=== PATIENT | female | born 1990 | race Caucasian/White ===

== ENCOUNTER 2016-08-01 20:47 | Outpatient (CLI) | payer OTHER ==
[2016-08-01 21:32] LABS: APPEARANCE,URINE CLEAR; BILIRUBIN,URINE NEGATIVE (NEGATIVE); GLUCOSE, URINE NEGATIVE (NEGATIVE); KETONES,URINE NEGATIVE (NEGATIVE); LEUKOCYTE ESTERASE,URINE NEGATIVE (NEGATIVE); NITRITE,URINE NEGATIVE (NEGATIVE); PROTEIN,URINE NEGATIVE (NEGATIVE); URINE SPECIFIC GRAVITY 1.002; UROBILINOGEN,URINE NEGATIVE mg/dL (<2.0)
[2016-08-01 22:11] LABS: URINE BARBITURATES SCREEN NEGATIVE; URINE METHADONE SCREEN NEGATIVE; URINE OPIATES LOW NEGATIVE; URINE PHENCYCLIDINE SCREEN NEGATIVE
--- NOTE | 2016-08-02 00:14 | Non Stress Test Report ---
Non Stress Test Datetime Report Generated by CPN: 08/02/2016 00:14 DEMOGRAPHIC Test Number: 1 INDICATION Indication for Study: Ordered by Provider VITAL SIGNS Temperature - NST: 98.0 Pulse - NST: 80 RESP - NST: 14 NBPSYS NST: 108 NBPDIA NST: 64 MONITORING Monitor Explained: Monitor Explained; Test Explained; Patient Verbalized Understanding Time on Monitor: 08/01/2016 21:00 Time off Monitor: 08/01/2016 22:42 NST Duration: 102 NST INTERVENTIONS NST Interventions: PO Hydration Physician Notified NST: Dr Lester BABY A: [id number] BABY A Movement : Present Contraction Frequency : 1.5-5.5 FHR Baseline : 150 Accelerations : 15X15 Decelerations : None Variability : Moderate 6-25bpm NST Review: Meets Criteria for Reactive NST NST Review and Verified By : Blaze Haddad RN NST Results: Reactive NST REPORT Report Trigger: Send Report
--- NOTE | 2016-08-02 04:46 | L&D Flow Sheet ---
LD Flowsheet Datetime Report Generated by CPN: 08/02/2016 04:45 Datetime: 08/01/2016 23:52 Teaching Instructional Method: Demo; Verbal; Patient Instructed (Annotations: Kick counts, Term ) (Aiyana Ledgerwood, RN) Datetime: 08/01/2016 23:50 Communication Communication: Provider Orders Received; Call/Page Placed to Provider (Annotations: Dr Lester was notified that pt's servix did not change. D/C order received.) (Aiyana Ledgerwood, RN) Datetime: 08/01/2016 23:49 Vaginal Exam Dilatation (cm): 4.0 (Aiyana Ledgerwood, RN) Effacement (%): 70 (Aiyana Ledgerwood, RN) Station: -1 (Aiyana Ledgerwood, RN) Exam by: Brooklyn Nuñez RN (Aiyana Ledgerwood, RN) Datetime: 08/01/2016 22:42 Uterine Activity Monitor Mode: External; Palpation (Aiyana Ledgerwood, RN) Frequency (min): 1-3.5 (Aiyana Ledgerwood, RN) Quality: Mild (Aiyana Ledgerwood, RN) Duration (sec): 40-70 (Aiyana Ledgerwood, RN) Duration Criteria: Less than Two 120 Second Contractions (Aiyana Ledgerwood, RN) Pattern: Normal: <= 5 Contractions in 10 Minutes (Aiyana Ledgerwood, RN) Resting Tone (Palpate): Relaxed (Aiyana Ledgerwood, RN) Assessment A Monitor Mode: External US (Aiyana Ledgerwood, RN) FHR Baseline Rate : 135 (Aiyana Ledgerwood, RN) FHR Baseline Changes: No Baseline Change (Aiyana Ledgerwood, RN) Variability: Moderate 6-25 bpm (Aiyana Ledgerwood, RN) Accelerations: 15X15 (Aiyana Ledgerwood, RN) Decelerations: None (Aiyana Ledgerwood, RN) Patient Care Patient Care Comments: monitors off, pt is to walk for an hour. (Aiyana Ledgerwood, RN) Datetime: 08/01/2016 22:34 Communication Communication: Provider Orders Received; Call/Page Placed to Provider (Aiyana Nuñez RN) Communication Comments: Dr Batista was notified of pt's labs,FHR, complaints and VE. Order to walk the pt for one more hour received. If pt. is not changed she can be D/C home. (Aiyana Nuñez, RN) Datetime: 08/01/2016 21:46 Patient Care Patient Care Comments: monitors off, pt. is walking, birthing ball was provided for pt as well. (Aiyana Ledgerwood, RN) Datetime: 08/01/2016 21:45 Uterine Activity Monitor Mode: External; Palpation (Aiyana Ledgerwood, RN) Frequency (min): 1.5-4.5 (Aiyana Ledgerwood, RN) Quality: Mild (Aiyana Ledgerwood, RN) Duration (sec): 50-70 (Aiyana Ledgerwood, RN) Duration Criteria: Less than Two 120 Second Contractions (Aiyana Ledgerwood, RN) Pattern: Normal: <= 5 Contractions in 10 Minutes (Aiyana Ledgerwood, RN) Resting Tone (Palpate): Relaxed (Aiyana Ledgerwood, RN) Assessment A Monitor Mode: External US (Aiyana Ledgerwood, RN) FHR Baseline Rate : 150 (Aiyana Ledgerwood, RN) FHR Baseline Changes: No Baseline Change (Aiyana Ledgerwood, RN) Variability: Moderate 6-25 bpm (Aiyana Ledgerwood, RN) Accelerations: 15X15 (Aiyana Ledgerwood, RN) Decelerations: None (Aiyana Ledgerwood, RN) Datetime: 08/01/2016 21:34 NBP Sys/Shiela/Mean (mmHg): 109 (QS system process) : 64 (QS system process) : 82 (QS system process) Pulse: 69 (QS system process) LaborFlag: Labor (QS system process) Datetime: 08/01/2016 21:30 Uterine Activity Monitor Mode: External; Palpation (Aiyana Ledgerwood, RN) Frequency (min): 3.5-5 (Aiyana Ledgerwood, RN) Quality: Mild (Aiyana Ledgerwood, RN) Duration (sec): 70-80 (Aiyana Ledgerwood, RN) Duration Criteria: Less than Two 120 Second Contractions (Aiyana Ledgerwood, RN) Pattern: Normal: <= 5 Contractions in 10 Minutes (Aiyana Ledgerwood, RN) Resting Tone (Palpate): Relaxed (Aiyana Ledgerwood, RN) Assessment A Monitor Mode: External US (Aiyana Ledgerwood, RN) FHR Baseline Rate : 150 (Aiyana Ledgerwood, RN) FHR Baseline Changes: No Baseline Change (Aiyana Ledgerwood, RN) Variability: Moderate 6-25 bpm (Aiyana Ledgerwood, RN) Accelerations: 15X15 (Aiyana Ledgerwood, RN) Decelerations: None (Aiyana Ledgerwood, RN) Datetime: 08/01/2016 21:03 NBP Sys/Shiela/Mean (mmHg): 108 (QS system process) : 64 (QS system process) : 80 (QS system process) Pulse: 80 (QS system process) Respirations: 14 ([facility], ) Pain Pain Scale: 2 (Annotations: 2 out 5 during the contractions) (Aiyana Britneymammoth ) Pain Type: Contraction ([facility], ) Pain Location: Abdomen; Back ([facility], ) Pain Relief Measures: Comfort Measures ([facility], ) Pain Coping: Talking Through Contractions ([facility], ) Vaginal Bleeding: None ([facility]) Maternal Assessment Level of Consciousness: Fully Conscious (Aiyana Ledgerwood, RN) DTR's/Clonus: DTRs 2+; No Clonus (Aiyana Nuñez, RN) Headache: Denies (Aiyana Dunnegerwood, RN) Breath Sounds, Left: Clear and Equal (Aiyana Ledgerwood, RN) Breath Sounds, Right: Clear and Equal (Aiyana Ledgerwood, RN) Nausea/Vomiting: Denies (Aiyana Dunnegerwood, RN) RUQ Epigastric Pain: Denies (Aiyana Dunnegerwood, RN) Teaching Instructional Method: Demo; Verbal; Patient Instructed (Aiyana Nuñez RN) Plan of Care: Plan of Care Discussed (Aiyana Nuñez RN) Unit Routine: Sylvia to Room; Call Riddle; Bed; Waiting Areas; Handwashing; Monitoring; Safety/Fall Risk Prevention; Bathroom Privileges (Aiyana Nuñez RN) LaborFlag: Labor (QS system process) Datetime: 08/01/2016 21:00 Vaginal Exam Dilatation (cm): 4.0 (Aiyana Ledgerwood, RN) Effacement (%): 70 (Aiyana Ledgerwood, RN) Station: -1 (Aiyana Ledgerwood, RN) Exam by: O Ledgerwood RN (Aiyana Ledgerwood, RN) Datetime: 08/01/2016 20:50 Vital Signs Stage of : Labor (Aiyana Ledgerwood, RN)
--- NOTE | 2016-08-02 04:46 | L&D General Admission ---
General Admit Datetime Report Generated by CPN: 08/02/2016 04:45 INFORMATION Patient Age: 25 (05/22/2016 08:55:QS system process) : 2 (08/01/2016 21:11:Aiyana Nuñez RN) Para: 0 (08/01/2016 21:11:Aiyana Nuñez RN) Term: 0 (08/01/2016 21:11:Aiyana Nuñez RN) : 0 (08/01/2016 21:11:Aiyana Nuñez RN) Spontaneous Abortions: 1 (08/01/2016 21:11:Aiyana Nuñez RN) Induced Abortions: 0 (08/01/2016 21:11:Aiyana Nuñez RN) Livin (08/01/2016 21:11:Aiyana Nuñez RN) Baby, Number in Womb: 1 (08/01/2016 21:11:Aiyana Nuñez RN) CARE Primary Bit Setter: [facility] (08/01/2016 21:11:Aiyana Nuñez RN) Month of 1st Visit: December (08/01/2016 21:11:Aiyana Nuñez RN) Adequate Care: Yes (08/01/2016 21:11:Aiyana Nuñez RN) Height (in): 66 (08/01/2016 22:43:QS system process) ALLERGIES Medication Allergy: No (08/01/2016 21:11:Aiyana Nuñez RN) Medication Allergies: No Known Allergies (10/03/2015) (05/22/2016 08:55:QS system process) Latex Allergy: No Latex Allergies (08/01/2016 21:11:Aiyana Nuñez RN) COMMUNICATION Primary Language: Omani (08/01/2016 21:11:Aiyana Nuñez RN) Medical Tx Preferred Language: Omani (08/01/2016 21:11:Aiyana Nuñez RN) Communication Barrier(s): None (08/01/2016 21:11:Aiyana Nuñez RN) DEMOGRAPHICS Address: [address] [place] [id number] (05/22/2016 08:55:QS system process) Zipcode: [address] (05/22/2016 08:55:QS system process) Home (05/22/2016 08:55:QS system process) SSN: [id number] (05/22/2016 08:55:QS system process) Next of Kin Name: MARGARITO BOLANOS (05/22/2016 08:55:QS system process) Next of Kin (05/22/2016 08:55:QS system process) Next of Kin Relationship: SPO (05/22/2016 08:55:QS system process) Date of : 1990 (05/22/2016 08:55:QS system process) Marital Status: (05/22/2016 08:55:QS system process) Sex: Female (05/22/2016 08:55:QS system process) Race: (05/22/2016 08:55:QS system process) Ethnicity: Non- or (05/22/2016 08:55:QS system process) Denominational: Other (05/22/2016 08:55:QS system process) DRUG AND ALCOHOL USE Alcohol: No (08/01/2016 21:11:Aiyana Nuñez, RN) Cigarettes: Never Smoker. [id number] (08/01/2016 21:11:Aiyana Nuñez, RN) Marijuana: No (08/01/2016 21:11:Aiyana Dunnegerlemuel, RN) Cocaine: No (08/01/2016 21:11:Aiyana Nuñez, RN) Other Illicit Drugs: No (08/01/2016 21:11:Aiyana HireAHelperlalithawood, RN) VACCINE HISTORY Influenza Vaccine: Yes (08/01/2016 21:11:Aiyana HireAHelpergerwood, RN) Feeding Preference: Breast (08/01/2016 21:11:Aiyana Nuñez RN) Benefit of Breast Feed Discussed: Yes (08/01/2016 21:11:Aiyana Nuñez RN) Circumcision: Yes (08/01/2016 21:11:Aiyana Nuñez RN) Classes Attended: No (08/01/2016 21:11:Aiyana Nuñez RN) Tubal Ligation: No (08/01/2016 21:11:Aiyana Nuñez RN) Tubal Authorization Signed: N/A (08/01/2016 21:11:Aiyana Nuñez RN) Consent: N/A (08/01/2016 21:11:Aiyana Nuñez RN) Consent Signed: N/A (08/01/2016 21:11:Aiyana Nuñez RN) Pain Management Plans: Natural (08/01/2016 21:11:Aiyana Nuñez RN) Plans for Labor and Delivery: Cord Blood Banking (08/01/2016 21:11:Aiyana Nuñez RN) Support Person: Griffiths (08/01/2016 21:11:Aiyana Nuñez RN) Support Person Relationship: (08/01/2016 21:11:Aiyana Nuñez RN) Cultural/Spritual Practice: No (08/01/2016 21:11:Aiyana Nuñez RN) Spir/Cult Dietary Needs: No (08/01/2016 21:11:Aiyana Nuñez RN) LIVING SITUATION/DISCHARGE PLAN Living Arrangements: House (08/01/2016 21:11:Aiyana Nuñez RN) Adequate Access to:: Electric; Heat; Refrigeration; Plumbing/Running water; Phone; Transportation (08/01/2016 21:11:Aiyana Nuñez RN) WIC Program: No (08/01/2016 21:11:Aiyana Nuñez RN) Discharge Lawn And Garden Technician Person: (08/01/2016 21:11:Aiyana Nuñez RN) Person to Help after Discharge: (08/01/2016 21:11:Aiyana Nuñez RN) Currently Using Commun Resources: No (08/01/2016 21:11:Aiyana Nuñez RN) Outside Agency/Die Fitter: No (08/01/2016 21:11:Aiyana Nuñez RN) Car Seat for Discharge: Yes (08/01/2016 21:11:Aiyana Nuñez RN) Adoption Requested: No (08/01/2016 21:11:Aiyana Nuñez RN) Pt Contact w/infant Post : N/A (08/01/2016 21:11:Aiyana Nuñez RN) LABS Blood Type: A Negative (08/01/2016 21:11:Aiyana Nuñez RN) Antibody Screen: negative (08/01/2016 21:11:Aiyana Nuñez RN) Group Beta Strep: negative (08/01/2016 21:11:Aiyana Nuñez RN) Chlamydia: Negative (08/01/2016 21:11:Aiyana Nuñez RN) Rubella: Immune (08/01/2016 21:11:Aiyana Nuñez RN) OB/PREVIOUS HISTORY Current Procedures: Ultrasound (08/01/2016 21:11:Aiyana Nuñez RN) History of Previous : No (08/01/2016 21:11:Aiyana Nuñez RN) History of Gestational Diabetes: Yes (08/01/2016 21:11:Aiyana Nuñez RN) History of PIH: No (08/01/2016 21:11:Aiyana Nuñez RN) History of Incompetent Cervix: No (08/01/2016 21:11:Aiyana Nuñez RN) History of Placenta Previa/Abrup: No (08/01/2016 21:11:Aiyana Nuñez RN) History of Macrosomia: No (08/01/2016 21:11:Aiyana Nuñez RN) History of IUGR: No (08/01/2016 21:11:Aiyana Nuñez RN) History of Hemorrhage: No (08/01/2016 21:11:Aiyana Nuñez RN) History of Loss/Stillborn: No (08/01/2016 21:11:Aiyana Nuñez RN) History of : No (08/01/2016 21:11:Aiyana Nuñez RN) History of D (Rh) Sensitization: No (08/01/2016 21:11:Aiyana Nuñez RN) History Recurrent Loss/Stillborn: No (08/01/2016 21:11:Aiyana Nuñez RN) History Depression/PP Depression: No (08/01/2016 21:11:Aiyana Nuñez RN) History of Uterine Anomaly/LAKESHIA: No (08/01/2016 21:11:Aiyana Nuñez RN) History of Infertility: No (08/01/2016 21:11:Aiyana Nuñez RN) History of ART Treatment: No (08/01/2016 21:11:Aiyana Nuñez RN) History of LAKESHIA: No (08/01/2016 21:11:Aiyana Nuñez RN) Comments Obstetrical History: 2015- 2016 current (08/01/2016 21:11:Aiyana Nuñez RN) MEDICAL HISTORY Med Hx Diabetes: No (08/01/2016 21:11:Aiyana Nuñez RN) Diabetes Type: Gestational Diabetes (08/01/2016 21:11:Aiyana Nuñez RN) Med Hx Hypertension: No (08/01/2016 21:11:Aiyana Nuñez RN) Med Hx Heart Disease: No (08/01/2016 21:11:Aiyana Nuñez RN) Med Hx Autoimmune Disorder: No (08/01/2016 21:11:Aiyana Nuñez RN) Med Hx Kidney Disease/UTI: No (08/01/2016 21:11:Aiyana uNñez RN) Med Hx Neurologic/Epilepsy: No (08/01/2016 21:11:Aiyana Nuñez RN) Med Hx Psychiatric Disorders: No (08/01/2016 21:11:Aiyana Nuñez RN) Med Hx Hepatitis/Liver Disease: No (08/01/2016 21:11:Aiyana Nuñez RN) Med Hx Varicosities/Phlebitis: No (08/01/2016 21:11:Aiyana Nuñez RN) Med Hx Thyroid Dysfunction: Yes (08/01/2016 21:11:Aiyana Nuñez RN) Med Hx Trauma/Violence: No (08/01/2016 21:11:Aiyana Nuñez RN) Med Hx Blood Transfusion: No (08/01/2016 21:11:Aiyana Nuñez RN) Med Hx Pulmonary (Asthma,TB): No (08/01/2016 21:11:Aiyana Nuñez RN) Med Hx Breast: No (08/01/2016 21:11:Aiyana Nuñez RN) Med Hx INFORMATION DIRECTOR Surgery: No (08/01/2016 21:11:Aiyana Nuñez RN) Med Hx Hospitalization/Surgery: No (08/01/2016 21:11:Aiyana Nuñez RN) Med Hx Anesthetic Complications: No (08/01/2016 21:11:Aiyana Nuñez RN) Med Hx Abnormal Pap Smear: No (08/01/2016 21:11:Aiyana Nuñez RN) Other Medical Diseases: No (08/01/2016 21:11:Aiyana Nuñez RN) Med Hx Significant Family Hx: No (08/01/2016 21:11:Aiyana Nuñez RN) Details of Med/Surg Hx: Thyroid Dysfunction during current pregnacy (08/01/2016 21:11:Aiyana Nuñez RN) INFECTIOUS HISTORY Inf Hx Gonorrhea: No (08/01/2016 21:11:Aiyana Nuñez RN) Inf Hx Chlamydia: No (08/01/2016 21:11:Aiyana Nuñez RN) Inf Hx Syphilis: No (08/01/2016 21:11:Aiyana Nuñez RN) Inf Hx HIV/AIDS: No (08/01/2016 21:11:Aiyana Nuñez RN) Inf Hx Human Papilloma Virus: No (08/01/2016 21:11:Aiyana Nuñez RN) Inf Hx Pt/Partner Genital Herpes: No (08/01/2016 21:11:Aiyana Nuñez RN) Inf Hx Tuberculosis/Exposure: No (08/01/2016 21:11:Aiyana Nuñez RN) Inf Hx Hepatitis B,C: No (08/01/2016 21:11:Aiyana Nuñez RN) Inf Hx Rash or Viral Illness: No (08/01/2016 21:11:Aiyana Nuñez RN) GENETIC HISTORY Gen Hx Age >=35 at GUZMAN: No (08/01/2016 21:11:Aiyana Nuñez RN) Gen Hx Thalassemia: No (08/01/2016 21:11:Aiyana Nuñez RN) Gen Hx Congenital Heart Defect: No (08/01/2016 21:11:Aiyana Nuñez RN) Gen Hx Neural Tube Defect: No (08/01/2016 21:11:Aiyana Nuñez RN) Gen Hx Down's Syndrome: No (08/01/2016 21:11:Aiyana Nuñez RN) Gen Hx Milton-Sachs: No (08/01/2016 21:11:Aiyana Nuñez RN) Gen Hx Vega: No (08/01/2016 21:11:Aiyana Nuñez RN) Gen Hx Familial Dysautonomia: No (08/01/2016 21:11:Aiyana Nuñez RN) Gen Hx Sickle Cell Disease/Trait: No (08/01/2016 21:11:Aiyana Nuñez RN) Gen Hx Hemophilia/Blood Disorder: No (08/01/2016 21:11:Aiyana Nuñez RN) Gen Hx Muscular Dystrophy: No (08/01/2016 21:11:Aiyana Nuñez RN) Gen Hx Cystic Fibrosis: No (08/01/2016 21:11:Aiyana Nuñez RN) Gen Hx Huntingtons Chorea: No (08/01/2016 21:11:Aiyana Nuñez RN) Gen Hx Mental Retardation/Autism: No (08/01/2016 21:11:Aiyana Nuñez RN) Gen Hx Tested for Fragile X: No (08/01/2016 21:11:Aiyana Nuñez RN) Gen Hx Other Inher/Chromosomal: No (08/01/2016 21:11:Aiyana Nuñez RN) Gen Hx Pt Father or FOB Defect: No (08/01/2016 21:11:Aiyana Nuñez RN) Gen Hx Other Genetic History: No (08/01/2016 21:11:Aiyana Nuñez RN) Gen Hx Drugs/Meds since LMP: No (08/01/2016 21:11:Aiyana Nuñez RN)
--- NOTE | 2016-08-02 04:46 | Antepartum Discharge Summary ---
Antepartum DC Datetime Report Generated by CPN: 08/02/2016 04:45 DIET/ACTIVITY/RESTRICTIONS Diet: Regular (08/02/2016 00:13:Aiyana Ledgerwood, RN) Activity: Normal Activity (08/02/2016 00:13:Aiyana Ledgerwood, RN) TEACHING/INSTRUCTIONS/REFERRALS Instructions Given To: pt (08/02/2016 00:13:Aiyana Ledgerwood, RN) Instructions Understood: Patient Verbalized Understanding (08/02/2016 00:13:Aiyana Ledgerwood, RN) Referrals: None (08/02/2016 00:13:Aiyana Nuñez RN) Educational Materials- Other: Kick Counts Term (08/02/2016 00:13:Aiyana Nuñez RN) DISCHARGE INFORMATION Discharged AMA: No (08/02/2016 00:13:Aiyana Nuñez RN) Physician Notified of Disch AMA: Dr Batista (08/02/2016 00:13:Aiyana Nuñez RN) Discharge Date/Time: 08/02/2016 00:08 (08/02/2016 00:13:Aiyana Nuñez RN) Discharged To: Home (08/02/2016 00:13:Aiyana Nuñez RN) Discharge Provider Name: Dr Batista (08/02/2016 00:13:Aiyana Nuñez RN) Accompanied By: (08/02/2016 00:13:Aiyana Nñuez RN) Discharge Method: Ambulatory (08/02/2016 00:13:Aiyana Nuñez RN) Condition: Stable (08/02/2016 00:13:Aiyana Nuñez RN) FOLLOW UP INFORMATION Follow Up With: [facility] (08/02/2016 00:13:Aiyana Nuñez RN) Follow Up On: As Scheduled (08/02/2016 00:13:Aiyana Nuñez RN) Follow Up Phone Number: [facility] - (08/02/2016 00:13:Aiyana Nuñez RN)
--- NOTE | 2016-08-02 04:46 | L&D Discharge Summary ---
OB Discharge Summary Datetime Report Generated by CPN: 08/02/2016 04:45 DISCHARGE DIAGNOSIS Diagnosis/Symptoms: False Labor Number of Babies in Womb: 1 Parity: 0 DIET/ACTIVITY/RESTRICTIONS Diet: Regular Activity: Normal Activity TEACHING/INSTRUCTIONS/REFERRALS Instructions Given To: pt Instructions Understood: Patient Verbalized Understanding Referrals: None Educational Materials- Other: Kick Counts Term DISCHARGE INFORMATION Discharged AMA: No Physician Notified of Disch AMA: Dr Lester Discharge Date/Time: 08/02/2016 00:08 Discharged To: Home Discharge Provider Name: Dr Lester Accompanied By: Discharge Method: Ambulatory Condition: Stable FOLLOW UP INFORMATION Follow Up With: [facility] Follow Up On: As Scheduled Follow Up Phone Number: [facility] -
--- NOTE | 2016-08-02 04:46 | L&D Admission Assessment ---
LD ADM ASMT Datetime Report Generated by CPN: 08/02/2016 04:45 PATIENT ASSESSMENT Assessment Type: Transfer/Discharge (08/01/2016 21:03:Aiyana Ledgerwood, RN) WEIGHT Weight (lb): 235 (08/01/2016 22:43:QS system process) Weight (kg): 106.8 (08/01/2016 22:43:QS system process) PAIN Pain Scale: 2 (Annotations: 2 out 5 during the contractions) (08/01/2016 21:03:Aiyana Nuñez RN) Pain Type: Contraction (08/01/2016 21:03:Aiynaa Nuñez RN) Pain Location: Abdomen; Back (08/01/2016 21:03:Aiyana Nuñez RN) CONTRACTIONS Frequency (min): 1-3.5 (08/01/2016 22:42:Aiyana Nuñez RN) Frequency (min): 1.5-4.5 (08/01/2016 21:45:Aiyana Nuñez RN) Frequency (min): 3.5-5 (08/01/2016 21:30:Aiyana Nuñez RN) Duration (sec): 40-70 (08/01/2016 22:42:Aiyana Nuñze RN) Duration (sec): 50-70 (08/01/2016 21:45:Aiyana Nuñez RN) Duration (sec): 70-80 (08/01/2016 21:30:Aiyana Nuñez RN) Quality: Mild (08/01/2016 22:42:Aiyana Nuñez RN) Quality: Mild (08/01/2016 21:45:Aiyana Nuñez RN) Quality: Mild (08/01/2016 21:30:Aiyana Nuñez RN) Pattern: Normal: <= 5 Contractions in 10 Minutes (08/01/2016 22:42:Aiyana Nuñez RN) Pattern: Normal: <= 5 Contractions in 10 Minutes (08/01/2016 21:45:Aiyana Nuñez RN) Pattern: Normal: <= 5 Contractions in 10 Minutes (08/01/2016 21:30:Aiyana Nuñez RN) Resting Tone [place]: Relaxed (08/01/2016 22:42:Aiyana Nuñez RN) Resting Tone [place]: Relaxed (08/01/2016 21:45:Aiyana Nuñez RN) Resting Tone [place]: Relaxed (08/01/2016 21:30:Aiyana Nuñez RN) VAGINAL EXAM Dilatation (cm): 4.0 (08/01/2016 23:49:Aiyana Nuñez RN) Dilatation (cm): 4.0 (08/01/2016 21:00:Aiyana Nuñez RN) Effacement (%): 70 (08/01/2016 23:49:Aiyana Nuñez RN) Effacement (%): 70 (08/01/2016 21:00:Aiyana Nuñez RN) Station: -1 (08/01/2016 23:49:Aiyana Nuñez RN) Station: -1 (08/01/2016 21:00:Aiyana Nuñez RN) NEURO Level of Consciousness: Fully Conscious (08/01/2016 21:03:Aiyanachao Nuñez, RN) DTR's/Clonus: DTRs 2+; No Clonus (08/01/2016 21:03:Aiyana Nuñez, RN) Headache: Denies (08/01/2016 21:03:Aiyana Nuñez, RN) Dizziness: No (08/01/2016 21:03:Aiyana Nuñez, RN) Blurred Vision: No (08/01/2016 21:03:Aiyana Nuñez, RN) Extremity Numbness/Tingling : None (08/01/2016 21:03:Aiyanachao Dunnegerlemuel, RN) Extremity Movement: Full Range of Motion (08/01/2016 21:03:Aiyana Dunnegerlemuel, RN) CARDIOVASCULAR Nailbeds: [place] (08/01/2016 21:03:Aiyana Nuñez, RN) Capillary Refill: Less than 3 Seconds (08/01/2016 21:03:Aiyana Nuñez, RN) Facial Edema: None (08/01/2016 21:03:Aiyana Nuñez, DAREN) Khushi's Sign Left Leg: Negative (08/01/2016 21:03:Aiyanachao Dunnegerwood, RN) Khushi's Sign Right Leg: Negative (08/01/2016 21:03:Aiyana Ledgerwood, RN) RESPIRATORY Respiratory Effort: Unlabored; Regular Rhythm; Equal Expansion (08/01/2016 21:03:Aiyanachao Nuñez, RN) Breath Sounds, Left: Clear and Equal (08/01/2016 21:03:Aiyanachao Dunnegerlemuel, RN) Breath Sounds, Right: Clear and Equal (08/01/2016 21:03:Aiyana Ledgerwood, RN) Cough Productivity: None (08/01/2016 21:03:Aiyana Ledgerwood, RN) GASTROINTESTINAL Nausea/Vomiting: Denies (08/01/2016 21:03:Aiyana Nuñez RN) Bowel Sounds: Normoactive; All Quadrants (08/01/2016 21:03:Aiyaan Nuñez RN) RUQ Epigastric Pain: Denies (08/01/2016 21:03:Aiyana Nuñez RN) Bowel Patterns: Diarrhea (08/01/2016 21:03:Aiyana Nuñez RN) Hemorrhoids: None (08/01/2016 21:03:Aiyana Nuñez RN) Diet Type: Regular diet (08/01/2016 21:03:Aiyana Nuñez RN) Last Meal: 08/01/2016 20:00 (08/01/2016 21:03:Aiyana Nuñez RN) GENITOURINARY Bladder: Nondistended (08/01/2016 21:03:Aiyana Nuñez RN) Frequency of Urination: No (08/01/2016 21:03:Aiyana Nuñez RN) Urination Burning: No (08/01/2016 21:03:Aiyana Nuñez RN) CVA Tenderness: No (08/01/2016 21:03:Aiyana Nuñez RN) Vaginal Bleeding: None (08/01/2016 21:03:Aiyana Nuñez RN) Vaginal Discharge Color: N/A (08/01/2016 21:03:Aiyana Nuñez RN) INTEGUMENTARY Skin Color: Normal for Race (08/01/2016 21:03:Aiyana Nuñez RN) Skin Temperature: Warm (08/01/2016 21:03:Aiyana Nuñez RN) Skin Moisture: Dry (08/01/2016 21:03:Aiyana Nuñez RN) JOSH SKIN ASSESSMENT Josh Scale Sensory Perception: No Impairment- Responds to verbal commands. Has no sensory deficit which would limit ability to feel or voice pain or discomfort (08/01/2016 21:03:Aiyana Nuñez RN) Josh Scale Moisture: Rarely Moist- Skin is usually dry. Linen only requires changing at routine intervals (08/01/2016 21:03:Aiyana Nuñez RN) Josh Scale Activity: Walks Frequently- Walks outside the room at least twice a day and inside room at least every 2 hours during the day. (08/01/2016 21:03:Aiyana Nuñez RN) Josh Scale Mobility: No Limitations- Makes major and frequent changes in position without assistance (08/01/2016 21:03:Aiyana Nuñez RN) Josh Scale Nutrition: Excellent- Eats most of every meal. Never refuses a meal. Usually eats a total of 4 or more servings of meat and dairy products. Occasionally eats between meals. Does not require supplementation (08/01/2016 21:03:Aiyana Nuñez RN) Josh Scale Friction and Shear: No Apparent Problem- Moves in bed and in chair independently and has sufficient muscle strength to lift up completely during move. Maintains good position in bed or chair at all times (08/01/2016 21:03:Aiyana Nuñez RN) Josh Scale Total: 23 (08/01/2016 21:03:QS system process) Josh Scale Risk: No Risk of Pressure Ulcer Noted at this Time (08/01/2016 21:03:QS system process) SUPPORT Family Support: Significant Other supportive, at bedside frequently (08/01/2016 21:03:Aiyana Nuñez, DAREN) Emotional State: Calm/Relaxed (08/01/2016 21:03:Aiyana Ledgerwood, RN) SAFETY Call Riddle Within Reach: Yes (08/01/2016 21:03:Aiyana Nuñez RN) Side Rails Up: Yes (08/01/2016 21:03:Aiyana Nuñez RN) Bed Wheels Locked: Yes (08/01/2016 21:03:Aiyana Nuñez RN) Arm Bands Present: Yes (08/01/2016 21:03:Aiyana Nuñez RN) FALL SCREEN Fall Risk History of Falling: (0) No (08/01/2016 21:03:Aiyana Nuñez RN) Fall Risk Secondary Diagnosis: (0) No (08/01/2016 21:03:Aiyana Nuñez RN) Fall Risk Ambulatory Aid: (0) None/Bedrest/Wheelchair/Nurse Assist (08/01/2016 21:03:Aiyana Nuñez RN) Fall Risk IV Therapy: (0) No (08/01/2016 21:03:Aiyana Nuñez RN) Fall Risk Gait: (0) Normal/Bedrest/Immobile (08/01/2016 21:03:Aiyana Nuñez RN) Fall Risk Mental Status: (0) Oriented to Own Ability (08/01/2016 21:03:Aiyana Nuñez RN) Fall Risk Score: 0 (08/01/2016 21:03:QS system process) Fall Risk Score Definition: No Risk: No action required (08/01/2016 21:03:QS system process) BABY A FHR Baseline Rate (bpm) Baby A: 135 (08/01/2016 22:42:Aiyana Nuñez RN) FHR Baseline Rate (bpm) Baby A: 150 (08/01/2016 21:45:Aiyana Nuñez RN) FHR Baseline Rate (bpm) Baby A: 150 (08/01/2016 21:30:Aiyana Nuñez RN) Variability Baby A: Moderate 6-25 bpm (08/01/2016 22:42:Aiyana Nuñez RN) Variability Baby A: Moderate 6-25 bpm (08/01/2016 21:45:Aiyana Nuñez RN) Variability Baby A: Moderate 6-25 bpm (08/01/2016 21:30:Aiyana Nuñez RN) Accelerations Baby A: 15X15 (08/01/2016 22:42:Aiyana Nuñez RN) Accelerations Baby A: 15X15 (08/01/2016 21:45:Aiyana Nuñez RN) Accelerations Baby A: 15X15 (08/01/2016 21:30:Aiyana Nuñez RN) Decelerations Baby A: None (08/01/2016 22:42:Aiyana Nuñez RN) Decelerations Baby A: None (08/01/2016 21:45:Aiyana Nuñez RN) Decelerations Baby A: None (08/01/2016 21:30:Aiyana Nuñez RN)
--- NOTE | 2016-08-02 04:46 | L&D Current Admission ---
Current Admit Datetime Report Generated by CPN: 08/02/2016 04:45 ADMISSION INFORMATION Chief Complaint: Contractions (08/01/2016 21:03:Aiyana Nuñez, DAREN)
== END 2016-08-02 00:08 | disposition home or self-care (01) ==
LOC: LC 20:47
PROVIDERS: ATTEND Obstetrics & Gynecology
PROC: 4A1HXCZ Monitoring of Products of Conception, Cardiac Rate, External Approach (ICD-10-PCS; principal; 2016-08-01)
DX: O47.1 False labor at or after 37 completed weeks of gestation (principal); Z3A.39 39 weeks gestation of pregnancy
CPT/HCPCS: 59025; 80307; 81005

== ENCOUNTER 2016-08-02 11:25 | Inpatient (IN) | payer OTHER ==
[2016-08-02 11:51] LABS: APPEARANCE,URINE SLIGHTLY-CLOUDY; BILIRUBIN,URINE NEGATIVE (NEGATIVE); GLUCOSE, URINE NEGATIVE (NEGATIVE); KETONES,URINE NEGATIVE (NEGATIVE); LEUKOCYTE ESTERASE,URINE NEGATIVE (NEGATIVE); NITRITE,URINE NEGATIVE (NEGATIVE); PROTEIN,URINE NEGATIVE (NEGATIVE); URINE SPECIFIC GRAVITY 1.003; UROBILINOGEN,URINE NEGATIVE mg/dL (<2.0)
[2016-08-02 12:35] LABS: URINE BARBITURATES SCREEN NEGATIVE; URINE METHADONE SCREEN NEGATIVE; URINE OPIATES LOW NEGATIVE; URINE PHENCYCLIDINE SCREEN NEGATIVE
[2016-08-02] MEDS ORDERED: HYDROXYZINE PAMOATE 50 MG CAPSULE ONE (13:44)
--- NOTE | 2016-08-02 14:07 | Non Stress Test Report ---
Non Stress Test Datetime Report Generated by CPN: 08/02/2016 14:07 DEMOGRAPHIC EGA NST: 39.6 INDICATION Indication for Study: Other Indication for Study (NST) Other: LC MONITORING Monitor Explained: Monitor Explained; Test Explained; Patient Verbalized Understanding Time on Monitor: 08/02/2016 11:58 Time off Monitor: 08/02/2016 12:18 NST Duration: 20 NST INTERVENTIONS NST Interventions: PO Hydration Physician Notified NST: K. Freire CNM BABY A Movement : Present Contraction Frequency : 4-8.5 FHR Baseline : 130 Accelerations : 15X15 Decelerations : None Variability : Moderate 6-25bpm NST Review: Meets Criteria for Reactive NST NST Review and Verified By : DAREN ABERNATHY Results: Reactive NST REPORT Report Trigger: Send Report
[2016-08-02 15:44] LABS: ABSOLUTE LYMPHOCYTES (AUTO) 1.7 10^3/uL (0.5-4.7); ABSOLUTE MONOCYTES (AUTO) 0.9 10^3/uL (0.1-1.4); ABSOLUTE NEUT (AUTO) 9.1 10^3/uL (1.7-8.2); BASOPHILS % (AUTO) 0.2 % (0-2); EOSINOPHILS % (AUTO) 0.1 % (0-6); HEMATOCRIT 34.9 % (36.0-47.0); HEMOGLOBIN 11.8 g/dL (12.0-15.5); HGB HCT DIFFERENCE 0.5; LYMPHOCYTES % (AUTO) 14.6 % (13-45); MEAN CORPUSCULAR HEMOGLOBIN 28.3 pg (27.0-33.4); MEAN CORPUSCULAR HGB CONC 33.8 g/dL (32.0-36.0); MEAN CORPUSCULAR VOLUME 84 fl (80-97); MONOCYTES % (AUTO) 7.7 % (3-13); RED BLOOD COUNT 4.16 10^6/uL (3.72-5.28); RED CELL DISTRIBUTION WIDTH 16.4 % (11.5-14.0); SEGMENTED NEUTROPHILS % (AUTO) 77.4 % (42-78); WHITE BLOOD COUNT 11.7 10^3/uL (4.0-10.5)
[2016-08-02] MEDS ORDERED: EPHEDRINE SULFATE INJ 50 MG/1 ML AMPULE ONE (15:58)
[2016-08-02] MEDS ORDERED: FENTANYL/BUPIVACAINE/NS/PF 200 MCG/100 ML RTUINJ EPI ONE (15:59)
[2016-08-02] MEDS ORDERED: BUPIVACAINE HCL 0.25 % INJ/PF (2.5 MG/1 ML) 30 ML VIAL ONE (15:59)
[2016-08-02] MEDS ORDERED: MISOPROSTOL 0.2 MG TABLET ONE (16:43)
[2016-08-02] MEDS ORDERED: LIDOCAINE 1% INJ-PF (10 MG/ML) 30 ML SDV ONE (16:44)
[2016-08-02] MEDS ORDERED: OXYTOCIN/NORMAL SALINE 20 UNIT/1,000 ML RTUINJ ONE (16:44)
--- NOTE | 2016-08-02 20:01 | L&D Flow Sheet ---
LD Flowsheet Datetime Report Generated by CPN: 08/02/2016 20:00 Datetime: 08/02/2016 19:56 NBP Sys/Shiela/Mean (mmHg): 114 (QS system process) : 55 (QS system process) : 78 (QS system process) Pulse: 69 (QS system process) Datetime: 08/02/2016 19:30 Stage of : Recovery (Jeanine Pierce RN) Pain Scale: 1 (Jeanine Pierce RN) Pain Presence: Constant (Jeanine Pierce, RN) Pain Type: Ache (Jeanine Pierce, RN) Pain Location: Perineum (Jeanine Pierce, RN) Pain Goal: 1 (Jeanine Pierce, RN) Datetime: 08/02/2016 19:24 NBP Sys/Shiela/Mean (mmHg): 99 (QS system process) : 57 (QS system process) : 74 (QS system process) Pulse: 85 (QS system process) Datetime: 08/02/2016 19:15 Stage of : Recovery (Jeanine Pierce RN) Pain Scale: 1 (Jeanine Pierce RN) Pain Presence: Constant (Jeanine Pierce RN) Pain Type: Ache (Jeanine Parratt, RN) Pain Location: Perineum (Jeanine Parratt, RN) Pain Goal: 1 (Jeanine Pierce, RN) Datetime: 08/02/2016 19:00 Stage of : Recovery (Jeanine Akbarmateo, RN) Pain Scale: 1 (Jeanine Marlaella, RN) Pain Presence: Constant (Jeanine Akbaramairaniella, RN) Pain Type: Ache (Jeanine Akbaramairaniella, RN) Pain Location: Perineum (Jeanine Naomieamairaniella, RN) Pain Goal: 1 (Jeanine Pierce, RN) Datetime: 08/02/2016 18:54 NBP Sys/Shiela/Mean (mmHg): 100 (QS system process) : 58 (QS system process) : 72 (QS system process) Pulse: 98 (QS system process) Datetime: 08/02/2016 18:45 Stage of : Recovery (Jeanine Marlatt, RN) Pain Scale: 1 (Jeanine Marlatt, RN) Pain Presence: Constant (Jeanine Marlatt, RN) Pain Type: Ache (Jeanine Marlatt, RN) Pain Location: Perineum (Jeanine Marlatt, RN) Pain Goal: 1 (Jeanine Marlatt, RN) Datetime: 08/02/2016 18:30 Stage of : Recovery (Jeanine Marlatt, RN) Pain Scale: 1 (Jeanine Marlatt, RN) Pain Presence: Constant (Jeanine Marlatt, RN) Pain Type: Ache (Jeanine Marlatt, RN) Pain Location: Perineum (Jeanine Marlatt, RN) Pain Goal: 1 (Jeanine Marlatt, RN) Datetime: 08/02/2016 18:15 Pain Scale: 1 (Jeanine Marlatt, RN) Pain Presence: Constant (Jeanine Marlatt, RN) Pain Type: Ache (Jeanine Marlatt, RN) Pain Location: Perineum (Jeanine Pierce RN) Pain Goal: 1 (Jeanine Pierce RN) LaborFlag: Labor (QS system process) Datetime: 08/02/2016 17:54 NBP Sys/Shiela/Mean (mmHg): 114 (QS system process) : 58 (QS system process) : 80 (QS system process) Pulse: 94 (QS system process) LaborFlag: Labor (QS system process) Datetime: 08/02/2016 17:45 Stage of : Labor (Keiry Tavares RN) Monitor Mode: External (Keiry Tavares RN) Monitor Interventions for UA: [place] Adjusted (Keiry Tavares RN) Frequency (min): 1.5-3 (Keiry Tavares RN) Quality: Moderate to Strong (Keiry Tavares RN) Duration (sec): 50-60 (Keiry Tavares RN) Resting Tone (Palpate): Relaxed (Keiry Dasha Roulund, RN) Monitor Mode: External US (Keiry Tavares RN) Monitor Interventions for FHR: Ultrasound Adjusted (Keiry Tavares RN) FHR Baseline Rate : 140 (Keiry Tavares RN) FHR Baseline Changes: No Baseline Change (Keiry Tavares RN) Variability: Moderate 6-25 bpm (Keiry Tavares, DAREN) Accelerations: None (Keiry Tavares RN) Decelerations: Early; Variable (Keiry Taavres, DAREN) Provider Reviewed Strip: Yes (Keiry Tavares RN) Pushing: Urge to Push (Keiry Tavares RN) Pushing Position: Pushing with Contractions; Pushing Lithotomy (Keiry Tavares, DAREN) Pushing Progress: Descent with Pushing; Perineal Bulging; Rectal Bulging; with Pushing; Pushing Effectively with Contractions (Keiry Tavares, DAREN) Stage 2 Comments: VIABLE MALE @ 1745, APGARS 9/9. SEE DELIVERY SUMMARY. (Keiry Tavares, DAREN) Communication: RN at Bedside; RN Reviewed Strip; Provider at Bedside (Keiry Tavares RN) Datetime: 08/02/2016 17:30 Stage of : Labor (Keiry Tavares RN) Monitor Mode: External (Keiry Tavares RN) Frequency (min): 1.5-3 (Keiry Tavares RN) Quality: Moderate to Strong (Keiry Tavares RN) Duration (sec): 50-60 (Keiry Tavares RN) Resting Tone (Palpate): Relaxed (Keiry Tavares RN) Monitor Mode: External US (Keiry Tavares RN) Monitor Interventions for FHR: Ultrasound Adjusted (Keiry Tavares RN) FHR Baseline Rate : 140 (Keiry Tavares RN) FHR Baseline Changes: No Baseline Change (Keiry Tavares RN) Variability: Moderate 6-25 bpm (Keiry Tavares RN) Accelerations: None (Keiry Tavares RN) Decelerations: Variable (Keiry Tavares RN) Pushing: Urge to Push (Keiry Tavares RN) Pushing Position: Pushing with Contractions; Pushing Lithotomy (Keiry Tavares RN) Pushing Progress: Descent with Pushing; Pushing Effectively with Contractions (Keiry Tavares RN) Communication: RN at Bedside; RN Reviewed Strip (Keiry Tavares RN) Datetime: 08/02/2016 17:24 NBP Sys/Shiela/Mean (mmHg): 135 (QS system process) : 106 (QS system process) : 118 (QS system process) Pulse: 94 (QS system process) LaborFlag: Labor (QS system process) Datetime: 08/02/2016 17:23 Communication: Provider at Bedside (Jeanine Pierce RN) Datetime: 08/02/2016 17:15 Stage of : Labor (Keiry Tavares RN) Monitor Mode: External (Keiry Tavares RN) Frequency (min): 1.5-3 (Keiry Tavares RN) Quality: Moderate to Strong (Keiry Tavares RN) Duration (sec): 55-65 (Keiry Tavares RN) Resting Tone (Palpate): Relaxed (Keiry Tavares RN) Monitor Mode: External US (Keiry Tavares RN) FHR Baseline Rate : 145 (Keiry Tavares RN) FHR Baseline Changes: No Baseline Change (Keiry Tavares RN) Variability: Moderate 6-25 bpm (Keiry Tavares RN) Accelerations: 15X15 (Keiry Tavares RN) Decelerations: None (Keiry Tavares RN) Comments: RN at bedside continuously monitoring FHTs while patient pushing with contractions (Jeanine Pierce RN) Instructional Method: Verbal; Patient Instructed; Family/Support Person Instructed; Verbalized Understanding (Keiry Tavares RN) Labor/Induction: Pushing Methods (Keiry Tavares RN) Pushing: Coached on Pushing; Urge to Push (Keiry Tavares RN) Pushing Position: Pushing with Contractions; Pushing Lithotomy (Keiry Tavares RN) Communication: RN at Bedside; RN Reviewed Strip (Keiry Tavares RN) Datetime: 08/02/2016 17:00 Monitor Mode: External (Jeanine Pierce RN) Frequency (min): 1-2.5 (Jeanine Pierce RN) Quality: Moderate (Jeanine Pierce RN) Duration (sec): 50-100 (Jeanine Pierce RN) Resting Tone (Palpate): Relaxed (Jeanine Pierce RN) Monitor Mode: External US (Jeanine Pierce RN) FHR Baseline Rate : 140 (Jeanine Pierce RN) Variability: Moderate 6-25 bpm (Jeanine Pierce, RN) Accelerations: 15X15 (Jeanine Pierce RN) Decelerations: Early (Jeanine Pierce RN) Datetime: 08/02/2016 16:54 NBP Sys/Shiela/Mean (mmHg): 139 (QS system process) : 70 (QS system process) : 98 (QS system process) Pulse: 84 (QS system process) LaborFlag: Labor (QS system process) Datetime: 08/02/2016 16:45 Temperature (F): 98.1 (Jeanine Pierce, RN) Temperature (C): 36.7 (QS system process) Monitor Mode: External (Jeanine Pierce, RN) Frequency (min): 1.5-3 (Jeanine Pierce, RN) Quality: Moderate (Jeanine Parratt, RN) Duration (sec): 50-80 (Jeanine Parratt, RN) Resting Tone (Palpate): Relaxed (Jeanine Pierce, RN) Monitor Mode: External US (Jeanine Pierce, RN) FHR Baseline Rate : 140 (Jeanine Pierce, RN) Variability: Moderate 6-25 bpm (Jeanine Naomielatt, RN) Accelerations: 15X15 (Jeanine Naomielatt, RN) Decelerations: None (Jeanine Akbarlatt, RN) LaborFlag: Labor (QS system process) Datetime: 08/02/2016 16:39 Monitor Interventions for UA: [place] Adjusted (Jeanine Pierce RN) Monitor Interventions for FHR: Ultrasound Adjusted (Jeanine Pierce RN) Patient Position/Activity: Left Tilt; Semi-Fowlers (Jeanine Pierce RN) Datetime: 08/02/2016 16:37 I/O Interventions: Straight Cath (ml) @ 300 (Jeanine Pierce RN) Datetime: 08/02/2016 16:30 Monitor Mode: External; Palpation (Jeanine Pierce RN) Frequency (min): 1.5-2 (Jeanine Pierce RN) Quality: Moderate (Jeanine Pierce RN) Duration (sec): 70-80 (Jeanine Pierce RN) Resting Tone (Palpate): Relaxed (Jeanine Pierce RN) Monitor Mode: External US (Jeanine Marlatt, RN) FHR Baseline Rate : 140 (Jeanine Marlatt, RN) Variability: Moderate 6-25 bpm (Jeanine Marlatt, RN) Accelerations: 15X15 (Jeanine Marlatt, RN) Decelerations: Early (Jeanine Marlatt, RN) Datetime: 08/02/2016 16:29 Dilatation (cm): 10.0 (Jeanine Marlatt, RN) Effacement (%): 100 (Jeanine Marlatt, RN) Station: 1 (Jeanine Marlatt, RN) Exam by: Se Pierce RN (Jeanine Marlatt, RN) Datetime: 08/02/2016 16:27 Stage 2 Comments: pt states she is feeling intense pressure (Jeanine Marlatt, RN) Datetime: 08/02/2016 16:23 NBP Sys/Shiela/Mean (mmHg): 133 (QS system process) : 68 (QS system process) : 90 (QS system process) Pulse: 81 (QS system process) LaborFlag: Labor (QS system process) Datetime: 08/02/2016 16:21 NBP Sys/Shiela/Mean (mmHg): 131 (QS system process) : 69 (QS system process) : 94 (QS system process) Pulse: 81 (QS system process) LaborFlag: Labor (QS system process) Datetime: 08/02/2016 16:19 NBP Sys/Shiela/Mean (mmHg): 130 (QS system process) : 69 (QS system process) : 93 (QS system process) Pulse: 94 (QS system process) Patient Position/Activity: Supine (Jeanine Pierce RN) Epidural Procedure Other: Pump Started (Jeanine Pierce RN) LaborFlag: Labor (QS system process) Datetime: 08/02/2016 16:18 Pulse: 79 (QS system process) Pulse: 76 (QS system process) SpO2 (%): 82 (QS system process) SpO2 (%): 91 (QS system process) LaborFlag: Labor (QS system process) Datetime: 08/02/2016 16:17 NBP Sys/Shiela/Mean (mmHg): 139 (QS system process) : 78 (QS system process) : 103 (QS system process) Pulse: 77 (QS system process) LaborFlag: Labor (QS system process) Datetime: 08/02/2016 16:15 NBP Sys/Shiela/Mean (mmHg): 138 (QS system process) : 80 (QS system process) : 104 (QS system process) Pulse: 63 (QS system process) Contraction Comments: UTD frequency and duration due to pt's position for epidural (Jeanine Pierce RN) Comments: UTD due to pt position for epidural (Jeanine Pierce RN) Epidural Procedure: Cath Placed (Jeanine Pierce RN) LaborFlag: Labor (QS system process) Datetime: 08/02/2016 16:14 Epidural Procedure: Test Dose (Jeanine Pierce, RN) Datetime: 08/02/2016 16:13 Pulse: 74 (QS system process) SpO2 (%): 100 (QS system process) LaborFlag: Labor (QS system process) Datetime: 08/02/2016 16:09 NBP Sys/Shiela/Mean (mmHg): 147 (QS system process) : 87 (QS system process) : 109 (QS system process) Pulse: 73 (QS system process) LaborFlag: Labor (QS system process) Datetime: 08/02/2016 16:08 Pulse: 95 (QS system process) SpO2 (%): 100 (QS system process) LaborFlag: Labor (QS system process) Datetime: 08/02/2016 16:07 NBP Sys/Shiela/Mean (mmHg): 143 (QS system process) : 82 (QS system process) : 107 (QS system process) Pulse: 82 (QS system process) LaborFlag: Labor (QS system process) Datetime: 08/02/2016 16:06 Procedure Verify: Correct Patient Identity; Accurate Procedure Consent Form; Agreement on Procedure to be Done; Correct Patient Position (Jeanine Pierce RN) Anesthesia Plans: Epidural (Jeanine Pierce RN) Epidural Positioning: Sitting (Jeanine Pierce RN) Anesthesia Comments: Dr. Cerda at bedside (Jeanine Pierce RN) Datetime: 08/02/2016 16:04 Pulse: 99 (QS system process) SpO2 (%): 91 (QS system process) LaborFlag: Labor (QS system process) Datetime: 08/02/2016 16:03 Pulse: 68 (QS system process) SpO2 (%): 100 (QS system process) LaborFlag: Labor (QS system process) Datetime: 08/02/2016 16:01 Comments: heart monitor tracing maternal HR (Jeanine Pierce RN) Epidural Positioning: Sitting (Jeanine Pierce RN) Datetime: 08/02/2016 16:00 Monitor Mode: External; Palpation (Jeanine Pierce RN) Frequency (min): 2.5-3.5 (Jeanine Pierce RN) Quality: Moderate (Jeanine Pierce RN) Duration (sec): 40-70 (Jeanine Pierce RN) Resting Tone (Palpate): Relaxed (Jeanine Marlatt, RN) Monitor Mode: External US (Jeanine Marlatt, RN) FHR Baseline Rate : 130 (Jeanine Marlatt, RN) Variability: Moderate 6-25 bpm (Jeanine Marlatt, RN) Accelerations: 15X15 (Jeanine Marlatt, RN) Decelerations: None (Jeanine Marlatt, RN) Datetime: 08/02/2016 15:45 Monitor Mode: External (Jeanine Marlatt, RN) Frequency (min): 1.5-2.5 (Jeanine Marlatt, RN) Quality: Moderate (Jeanine Marlatt, RN) Duration (sec): 60-90 (Jeanine Marlatt, RN) Resting Tone (Palpate): Relaxed (Jeanine Marlatt, RN) Monitor Mode: External US (Jeanine Marlatt, RN) FHR Baseline Rate : 130 (Jeanine Marlatt, RN) Variability: Moderate 6-25 bpm (Jeanine Marlatt, RN) Accelerations: 15X15 (Jeanine Marlatt, RN) Decelerations: None (Jeanine Marlatt, RN) Datetime: 08/02/2016 15:37 IV/Blood Work: New IV Bag Hung (Jeanine Marlatt, RN) Datetime: 08/02/2016 15:30 Monitor Mode: External (Jeanine Marlatt, RN) Frequency (min): 1.5-2.5 (Jeanine Marlatt, RN) Quality: Moderate (Jeanine Marlatt, RN) Resting Tone (Palpate): Relaxed (Jeanine Marlatt, RN) Monitor Mode: External US (Jeanine Marlatt, RN) FHR Baseline Rate : 130 (Jeanine Marlatt, RN) Variability: Moderate 6-25 bpm (Jeanine Marlatt, RN) Accelerations: 15X15 (Jeanine Marlatt, RN) Decelerations: None (Jeanine Marlatt, RN) Datetime: 08/02/2016 15:15 Monitor Mode: External; Palpation (Jeanine Marlatt, RN) Frequency (min): 1.5-2 (Jeanine Marlatt, RN) Quality: Moderate (Jeanine Marlatt, RN) Duration (sec): 60-80 (Jeanine Marlatt, RN) Resting Tone (Palpate): Relaxed (Jeanine Marlatt, RN) Monitor Mode: External US (Jeanine Marlatt, RN) FHR Baseline Rate : 130 (Jeanine Marlatt, RN) Variability: Moderate 6-25 bpm (Jeanine Marlatt, RN) Accelerations: 15X15 (Jeanine Marlatt, RN) Decelerations: None (Jeanine Marlatt, RN) Datetime: 08/02/2016 15:13 Comfort Measures: Rocking Chair (Jeanine Marlatt, RN) Datetime: 08/02/2016 15:10 Patient Position/Activity: Semi-Fowlers (Jeanine Marlatt, RN) Datetime: 08/02/2016 15:06 I/O Interventions: Up to BR (Jeanine Pierce RN) Datetime: 08/02/2016 15:02 IV/Blood Work: Labs Drawn (Jeanine Pierce, DAREN) Datetime: 08/02/2016 15:00 Monitor Mode: External; Palpation (Jeanine Pierce RN) Frequency (min): 1.5-2 (Jeanine Pierce RN) Quality: Moderate (Jeanine Pierce RN) Duration (sec): 60-80 (Jeanine Pierce RN) Resting Tone (Palpate): Relaxed (Jeanine Pierce RN) Monitor Mode: External US (Jeanine Pierce RN) FHR Baseline Rate : 130 (Jeanine Pierce RN) Variability: Moderate 6-25 bpm (Jeanine Pierce RN) Decelerations: None (Jeanine Pierce RN) Datetime: 08/02/2016 14:50 IV/Blood Work: IV Started; IV Bolus Started (Jeanine Pierce RN) Patient Care Comments: 18G left hand (Jeanine Pierce RN) Datetime: 08/02/2016 14:40 Frequency (min): 1.5-3 minutes (Jeanine Pierce RN) Pain Scale: 5 (Jeanine Pierce RN) Pain Presence: Intermittent (Jeanine Pierce RN) Pain Type: Cramping; Contraction (Jeanine Pierce RN) Pain Location: Abdomen (Jeanine Pierce RN) Pain Goal: 2 (Jeanine Pierce RN) Pain Coping: Breathing Through Contractions; Requesting Pain Medication or Epidural (Jeanine Pierce RN) Membrane Status: Ruptured (Jeanine Pierce RN) Membranes Ruptured Date/Time: 08/02/2016 14:15 (Jeanine Pierce RN) Membranes Rupture Method: Spontaneous (Jeanine Pierce RN) Amniotic Fluid Color: Clear (Jeanine Pierce RN) Amniotic Fluid Amount: Small (Jeanine Pierce RN) Amniotic Fluid Odor: Normal (Jeanine Pierce RN) Vaginal Bleeding: Normal Show (Jeanine Pierce RN) Level of Consciousness: Fully Conscious (Jeanine Pierce RN) DTR's/Clonus: DTRs 2+; No Clonus (Jeanine Pierce RN) Headache: Denies (Jeanine Pierce RN) Breath Sounds, Left: Clear and Equal (Jeanine Pierce RN) Breath Sounds, Right: Clear and Equal (Jeanine Pierce RN) Nausea/Vomiting: Denies (Jeanine Pierce RN) RUQ Epigastric Pain: Denies (Jeanine Pierce RN) Instructional Method: Demo; Verbal; Patient Instructed; Family/Support Person Instructed; Verbalized Understanding (Jeanine Pierce RN) Plan of Care: Plan of Care Discussed; Vaginal Delivery; Labor (Jeanine Pierce RN) Unit Routine: [place] to Room; Call Riddle; Bed; Monitoring; IV Pumps (Jeanine Pierce RN) Labor/Induction: Labor Stages (Jeanine Pierce RN) Pain Management: Epidural; PRN Medications; Pain Scale/Goals (Jeanine Pierce RN) LaborFlag: Labor (QS system process) Datetime: 08/02/2016 14:39 NBP Sys/Shiela/Mean (mmHg): 132 (QS system process) : 75 (QS system process) : 97 (QS system process) Pulse: 78 (QS system process) LaborFlag: Labor (QS system process) Datetime: 08/02/2016 14:36 Communication: Provider Orders Received (Jeanine Pierce RN) Communication Comments: Received order to admit patient (Jeanine Pierce RN) Datetime: 08/02/2016 14:35 Dilatation (cm): 4.0 (Jeanine Pierce RN) Effacement (%): 90 (Jeanine Pierce RN) Station: -1 (Jeanine Pierce RN) Exam by: Se Freire CNM (Jeanine Pierce RN) Membrane Status: Ruptured (Jeanine Pierce RN) Membranes Rupture Method: Spontaneous (Jeanine Pierce RN) Amniotic Fluid Color: Clear (Jeanine Pierce RN) Amniotic Fluid Amount: Small (Jeanine Pierce RN) Datetime: 08/02/2016 13:47 Comments: monitors discontinued, patient being discharged (Jeanine Pierce, DAREN) Datetime: 08/02/2016 13:40 Provider Reviewed Strip: Yes (Jeanine Pierce RN) Communication: RN at Bedside; Provider at Bedside (Jeanine Pierce RN) Provider Notified (Name): Se Freire CNM (Jeanine Pierce RN) Communication Comments: Provider at bedside discussing labor stages and the benefits of therapeutic rest. Received order to give patient 50mg of vistaril PO and discharge patient home (Jeanine Pierce RN) Datetime: 08/02/2016 13:37 Communication: Provider Orders Received; Call/Page Placed to Provider (Jeanine Pierce RN) Provider Notified (Name): LoriEden Freire CNM (Jeanine Pierce RN) Notification Reason: Status Update (Jeanine Pierce RN) Communication Comments: Notified provider of unchanged SVE. Provider will talk with patient (Jeanine Pierce RN) Datetime: 08/02/2016 13:33 Dilatation (cm): 4.0 (Jeanine Pierce RN) Effacement (%): 70 (Jeanine Pierce RN) Station: -1 (Jeanine Pierce RN) Exam by: Se Pierce RN (Jeanine Pierce RN) Vaginal Bleeding: Normal Show (Jeanine Pierce RN) Cervix, Position: Posterior (Jeanine Pierce RN) Datetime: 08/02/2016 12:19 Monitor Mode: External; Palpation (Jeanine Pierce RN) Frequency (min): 4.5-6.5 (Jeanine Pierce RN) Quality: Mild (Jeanine Pierce RN) Duration (sec): 80-100 (Jeanine Pierce RN) Resting Tone (Palpate): Relaxed (Jeanine Pierce RN) Monitor Mode: External US (Jeanine Pierce RN) FHR Baseline Rate : 130 (Jeanine Pierce RN) Variability: Moderate 6-25 bpm (Jeanine Pierce RN) Accelerations: 15X15 (Jeanine Pierce RN) Decelerations: None (Jeanine Pierce RN) Comments: monitors discontinued, patient ambulating halls (Jeanine Pierce RN) Datetime: 08/02/2016 12:15 Provider Reviewed Strip: Yes (Jeanine Pierce RN) Communication: Provider Orders Received; Call/Page Placed to Provider (Jeanine Pierce RN) Provider Notified (Name): Se Freire CNM (Jeanine Pierce, DAREN) Notification Reason: Status Update; Status; Uterine Activity (Jeanine Pierce RN) Communication Comments: Reviewed CTXs, FHTs, and SVE. Received order to have patient ambulate for an hour (Jeanine Pierce RN) Datetime: 08/02/2016 12:12 NBP Sys/Shiela/Mean (mmHg): 103 (QS system process) : 57 (QS system process) : 75 (QS system process) Pulse: 70 (QS system process) LaborFlag: Labor (QS system process) Datetime: 08/02/2016 12:00 Frequency (min): 4-8.5 (Jeanine Pierce, RN) Quality: Mild (Jeanine Pierce, RN) Duration (sec): 80-110 (Jeanine Pierce, RN) Resting Tone (Palpate): Relaxed (Jeanine Pierce, RN) Monitor Mode: External US (Jeanine Pierce, RN) FHR Baseline Rate : 130 (Jeanine Parratt, RN) Variability: Moderate 6-25 bpm (Jeanine Naomielatt, RN) Accelerations: 15X15 (Jeanine Marlatt, RN) Decelerations: None (Jeanine Akbarlatt, RN) Datetime: 08/02/2016 11:51 NBP Sys/Shiela/Mean (mmHg): 104 (QS system process) : 58 (QS system process) : 76 (QS system process) Pulse: 71 (QS system process) LaborFlag: Labor (QS system process) Datetime: 08/02/2016 11:40 Frequency (min): began at 6pm last night, feels like it got worse maybe around 6am this morning (Jeanine Pierce RN) Pain Scale: 3 (Jeanine Pierce RN) Pain Presence: Intermittent (Jeanine Pierce RN) Pain Type: Cramping; Contraction (Jeanine Pierce RN) Pain Location: Abdomen (Jeanine Pierce RN) Pain Goal: 0 (Jeanine Pierce RN) Vaginal Bleeding: None (Jeanine Pierce RN) Level of Consciousness: Fully Conscious (Jeanine Pierce RN) DTR's/Clonus: DTRs 2+; No Clonus (Jeanine Pierce RN) Headache: Denies (Jeanine Pierce RN) Breath Sounds, Left: Clear and Equal (Jeanine Pierce RN) Breath Sounds, Right: Clear and Equal (Jeanine Pierce RN) Nausea/Vomiting: Denies (Jeanine Pierce RN) RUQ Epigastric Pain: Denies (Jeanine Pierce RN) Instructional Method: Demo; Verbal; Patient Instructed; Family/Support Person Instructed (Jeanine Pierce RN) Plan of Care: Plan of Care Discussed (Jeanine Pierce RN) Unit Routine: [place] to Room; Call Riddle; Bed; Monitoring (Jeanine Pierce RN) Labor/Induction: Labor Stages (Jeanine Pierce RN) LaborFlag: Labor (QS system process) Datetime: 08/02/2016 11:39 Dilatation (cm): 4.0 (Jeanine Pierce RN) Effacement (%): 70 (Jeanine Pierce RN) Station: -1 (Jeanine Pierce RN) Exam by: Se Pierce RN (Jeanine Pierce RN) Cervix, Position: Posterior (Jeanine Pierce RN) Datetime: 08/01/2016 21:34 LaborFlag: Labor (QS system process)
[2016-08-02] MEDS ORDERED: ACETAMINOPHEN WITH CODEINE #3 TABLET PO PRN ×2 (20:20)
[2016-08-02] MEDS ORDERED: DIPH/PERTUSS(ACELL)/TETANUS VAC/PF 0.5 ML SYR (>=10YO) IM PRN (20:20)
[2016-08-02] MEDS ORDERED: MEASLES,MUMPS&RUBELLA VACC/PF 0.5 ML VIAL SUBCUT PRN (20:20)
[2016-08-02] MEDS ORDERED: BENZOCAINE/MENTHOL AEROSOL SPRAY 56 ML TOP PRN (20:20)
[2016-08-02] MEDS ORDERED: DIBUCAINE 1% OINTMENT 28 GM TP PRN (20:20)
[2016-08-02] MEDS ORDERED: ZOLPIDEM TARTRATE 5 MG TABLET PO PRN (20:20)
[2016-08-02] MEDS ORDERED: OXYTOCIN/NORMAL SALINE 1,000 ML IV PRN (20:20)
--- NOTE | 2016-08-02 20:36 | Admission Physical ---
Datetime Report Generated by CPN: 08/02/2016 20:35 CURRENT ADMISSION Chief Complaint: Uterine Contractions; Suspected Ruptured Membranes Indication for Induction: Not Applicable Admit Plan: Admit to Unit; Initiate Labor Protocol ALLERGIES Medication Allergies: No Medication Allergies: No Known Allergies (08/02/2016) Medication Allergies: No Known Allergies (10/03/2015) Latex: No Latex Allergies OBSTETRICAL HISTORY EDC: 08/03/2016 00:00 : 2 Para: 0 Term: 0 : 0 SAB: 1 IAB: 0 Liv[place] Gestational Diabetes: Yes Rh Sensitization: No Incompetent Cervix: No LAKESHIA: No Infertility: No ART Treatment: No Uterine Anomaly: No IUGR: No Hx Previous C/S: No Macrosomia: No Hx Loss/Stillborn: No PIH: No Hx : No Placenta Previa/Abruption: No Depression/PP Depression: No PTL/PROM: No Post Hemorrhage: No Current Procedures: Ultrasound Obstetrical History Comments: 2015- 2016 current SEE RECORDS Alcohol: No Marijuana : No Cocaine: No Other Illicit Drugs: No Cigarettes: Never Smoker. 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 Heart Disease: No Hosp/Surgery: No Autoimmune Disorder: No Anesthetic Complications: No Kidney Disease: No Abnormal Pap Smear: No Neuro/Epilepsy: No Psychiatric Disorders: No Other Medical Diseases: No Hepatitis/Liver Disease: No Significant Family History: No Varicosities/Phlebitis: No Trauma/Violence : No Thyroid Dysfunction: Yes Medical History Comments: Thyroid Dysfunction during current pregnacy INFECTIOUS HISTORY Gonorrhea: No Genital Herpes: No Chlamydia: No Tuberculosis: No Syphilis: No Hepatitis: No HIV/AIDS Exposure: No Rash or Viral Illness: No HPV: No PHYSICAL EXAM General: Normal HEENT: Deferred Neurologic: Normal Thyroid: Deferred Heart: Normal Lungs: Normal Breast: Deferred Back: Deferred Abdomen: Normal Genitourinary Exam: Normal Extremities: Normal DTRs: Deferred Pelvic Type: Adequate VAGINAL EXAM Dilatation: 4 Effacement: 90 Station: -1 MEMBRANES Membranes: Ruptured Amniotic Fluid Color: Clear FETUS A EGA: 39.6 Monitoring: External US FHR- Baseline: 130 Variability: Moderate 6-25bpm Accelerations: 15X15 Decelerations: None FHR Category: Category I Presentation: Vertex Admit Comment: pt desires epidural PLANS FOR LABOR AND DELIVERY Labor and Delivery: Cord Blood Banking Pain Management: Natural Feeding Preference: Breast Benefit of Breast Feed Discussed: Yes Circumcision: Yes INFORMED CONSENT Assignment: Carlota Hoover MD Signature: with User ID: Ashley : with User ID: Ashley
--- NOTE | 2016-08-02 20:43 | Delivery Summary ---
Del Sum A-C Datetime Report Generated by CPN: 08/02/2016 20:43 ADMISSION DATA Chief Complaint: Uterine Contractions; Suspected Ruptured Membranes Indication for Induction: Not Applicable Admission Impression: Active Labor Admit Provider Comments: pt desires epidural DELIVERY PERSONNEL Delivery Doctor:: Mona Freire CNM Labor and Delivery Nurse:: Jeanine Pierce RNsignal operator Nurse:: Nalini Posada RN Hardware Installer/RURAL MAIL CARRIER: ST Eliazar Hardware Installer/RURAL MAIL CARRIER: Epifanio Virgilio, ST Additional Personnel: : Keiry Tavares, RN MATERNAL INFORMATION Delivery Anesthesia: Epidural Medications After Delivery: Pitocin Drip 20 Units/1000ml NSS Estimated Blood Loss (ml): 300 Maternal Complications: None Provider Comments: Precipitous labor. SVDVM, see repair note. OA, vigorous, to mother abd, cord clamped x2 cut per FOB. 3VC, cord blood collected for banking and lab. Placenta spont via yanes, intact. EBL 300, Apgars 9,9. LABOR SUMMARY EDC: 08/03/2016 00:00 No. Babies in Womb: 1 Attempted: No Labor Anesthesia: Epidural LABOR INFORMATION Reason for Induction: Not Applicable Onset of Labor: 08/02/2016 14:15 Complete Dilatation: 08/02/2016 16:29 Oxytocin: N/A Group B Beta Strep: negative Antibiotics # of Doses: 0 Steroids Given: None Reason Steroids Not Administered: Not Applicable MEMBRANES Membranes Rupture Method: Spontaneous Rupture of Membranes: 08/02/2016 14:15 Length of Rupture (hr): 3.50 Amniotic Fluid Color: Clear Amniotic Fluid Amount: Small Amniotic Fluid Odor: Normal STAGES OF LABOR Stage 1 hr: 2 Stage 1 min: 14 Stage 2 hr: 1 Stage 2 min: 16 Stage 3 hr: 0 Stage 3 min: 7 Total Time in Labor hr: 3 Total Time in Labor min: 37 VAGINAL DELIVERY Episiotomy: None Laceration Extension: Second Degree Laceration Type: Perineal; Sulcus Other Laceration: RT LT LABIAL_ PERINEAL, SULCUS Laceration Repair: Yes Laceration Repair Note: 2.0 chromic, 2.0 vicryl, 2.[address] used for extensive repair of bilateral sulcus, bilateral labial and perineal lacerations CSECTION DELIVERY Primary Indication: N/A BABY A INFORMATION Delivery Date/Time: 08/02/2016 17:45 Method of Delivery: Vaginal Born in Route : No : N/A Forceps: N/A Vacuum Extraction: N/A Shoulder Dystocia : No PRESENTATION/POSITION BABY A Presentation: Cephalic Cephalic Presentation: Vertex Vertex Position: Right Occipital Anterior Breech Presentation: N/A PLACENTA INFORMATION BABY A Placenta Delivery Time : 08/02/2016 17:52 Placenta Method of Delivery: Spontaneous Placenta Status: Delivered SCORES BABY A Heart Rate 1 min: >100 bpm Resp Effort 1 min: Good Cry Reflex Irritability 1 min: Cough or Sneeze or Pulls Away Muscle Tone 1 min: Active Motion Color 1 min: Body [place], Extremities Blue Resuscitation Effort 1 min: Tactile Stimulation SCORE 1 MIN: 9 Heart Rate 5 min: >100 bpm Resp Effort 5 min: Good Cry Reflex Irritability 5 min: Cough or Sneeze or Pulls Away Muscle Tone 5 min: Active Motion Color 5 min: Body [place], Extremities Blue SCORE 5 MIN: 9 INFORMATION BABY A Gestational Age at Delivery: 39.6 Gestational Status: Full Term- 39- 40.6 Weeks Outcome : Liveborn Infant Condition : Stable Infant Sex: Male IDENTIFICATION BABY A Infant Verification Date/Time: 08/02/2016 17:52 ID Band Number: [id number] Mother's Name Verified: Yes Infant Additional Verifying Personnel: D RODRIGO, U/S, RURAL MAIL CARRIER WEIGHT/LENGTH BABY A Infant Birthweight (gm): 3655 Weight (lb): 8 Weight (oz): 1 Length (in): 21.00 Length (cm): 53.34 CORD INFORMATION BABY A No. Cord Vessels: 3 Nuchal Cord : N/A Cord Blood Taken: Yes-For Storage (Mom's Blood type +) Banking/Donate Info: [employer]: [employer] Infant Suction: None ASSESSMENT BABY A Complications: None Physical Findings at Delivery: Within Normal Limits Respirations: Appears Normal Skin to Skin: Yes Skin to Skin Time (min): 60 Rug Cleaning Supervisor/ALS Called : No Care By: Charlie HERNANDEZ RN/ NALINI POSADA Transferred To: Remains with Mother SIGNATURES Assignment: Carlota Hoover MD Signature: with User ID: [email or web address] : with User ID: Ashley : I was personally available for consultation and serving as supervising physician for the MLP.
[2016-08-02] MEDS: IBUPROFEN 800 MG TABLET PO SCH (21:46)
[2016-08-03] MEDS: IBUPROFEN 800 MG TABLET PO SCH ×3 (06:05→21:05)
--- NOTE | 2016-08-03 07:01 | L&D Flow Sheet ---
LD Flowsheet Datetime Report Generated by CPN: 08/03/2016 07:00 Datetime: 08/02/2016 20:17 NBP Sys/Shiela/Mean (mmHg): 119 (QS system process) : 77 (QS system process) : 93 (QS system process) Pulse: 107 (QS system process) Datetime: 08/02/2016 20:10 Pain Scale: 1 (Jeaninechelsea Pierce, RN) Pain Presence: Constant (Jeaninechelsea Pierce, RN) Pain Type: Dull; Ache (Jeanine Marlatt, RN) Pain Location: Perineum (Jeanine Pierce, DAREN) Pain Goal: 1 (Jeanine Pierce RN) Pain Relief Measures: Comfort Measures (Jeanine Pierce RN) Datetime: 08/02/2016 20:07 NBP Sys/Shiela/Mean (mmHg): 118 (QS system process) : 71 (QS system process) : 88 (QS system process) Pulse: 106 (QS system process) Datetime: 08/02/2016 19:56 NBP Sys/Shiela/Mean (mmHg): 114 (QS system process) : 55 (QS system process) : 78 (QS system process) Pulse: 69 (QS system process) Datetime: 08/02/2016 19:45 Pain Scale: 1 (Jeanine Pierce, RN) Pain Presence: Constant (Jeanine Marlatt, RN) Pain Type: Ache (Jeanine Naomielatt, RN) Pain Location: Perineum (Jeanine Naomielatt, RN) Pain Goal: 1 (Jeanine Marlatt, RN) Datetime: 08/02/2016 19:30 Stage of : Recovery (Jeanine Pierce, RN) Pain Scale: 1 (Jeanine Pierce, RN) Pain Presence: Constant (Jeanine Marlaella, RN) Pain Type: Ache (Jeaninechelsea Pierce, RN) Pain Location: Perineum (Jeanine Naomielatt, RN) Pain Goal: 1 (Jeanine Pierce, RN) Datetime: 08/02/2016 19:24 NBP Sys/Shiela/Mean (mmHg): 99 (QS system process) : 57 (QS system process) : 74 (QS system process) Pulse: 85 (QS system process) Datetime: 08/02/2016 19:15 Stage of : Recovery (Jeanine Pierce RN) Pain Scale: 1 (Jeanine Pierce RN) Pain Presence: Constant (Jeanine Pierce RN) Pain Type: Ache (Jeanine Pierce RN) Pain Location: Perineum (Jeanine Pierce RN) Pain Goal: 1 (Jeanine Pierce RN) Datetime: 08/02/2016 19:00 Stage of : Recovery (Jeanine Pierce RN) Pain Scale: 1 (Jeanine Pierce RN) Pain Presence: Constant (Jeanine Pierce RN) Pain Type: Ache (Jeanine Pierce RN) Pain Location: Perineum (Jeanine Pierce RN) Pain Goal: 1 (Jeanine Pierce RN)
[2016-08-03 07:43] LABS: HEMATOCRIT 26.2 % (36.0-47.0); HGB HCT DIFFERENCE 0.2; MEAN CORPUSCULAR HEMOGLOBIN 28.4 pg (27.0-33.4); MEAN CORPUSCULAR HGB CONC 33.7 g/dL (32.0-36.0); MEAN CORPUSCULAR VOLUME 84 fl (80-97); RED CELL DISTRIBUTION WIDTH 16.2 % (11.5-14.0); WHITE BLOOD COUNT 11.4 10^3/uL (4.0-10.5)
[2016-08-03 07:52] LABS: HEMOGLOBIN 8.8 g/dL (12.0-15.5)
[2016-08-03] MEDS: SENNOSIDES/DOCUSATE 8.6-50 MG 1 EACH TABLET PO SCH (09:48)
[2016-08-03] MEDS: DOCUSATE SODIUM 100 MG CAPSULE PO SCH ×2 (09:49→17:08)
[2016-08-03] MEDS: FERROUS SULFATE 325 MG TABLET PO SCH ×2 (09:49→17:09)
[2016-08-03] MEDS: PRENATAL VITAMIN W-O CA NO5/FE FUMARATE/FA CAPSULE PO SCH (09:49)
--- NOTE | 2016-08-03 10:19 | PDOC PROGRESS REPORT ---
Subjective-OB Subjective: Post Delivery Day: 25 year old. Denies any needs at this time. Physical Exam (OB) Vital Signs: Temp Pulse Resp BP Pulse Ox 97.5 F 91 19 110/58 L 100 08/03/16 08:47 08/03/16 08:47 08/03/16 08:47 08/03/16 08:47 08/03/16 08:47 Intake & Output 08/02/16 08/03/16 08/04/16 06:59 06:59 06:59 Weight 105 kg - Lochia Lochia Amount: Moderate 25-50 ml Lochia Color: Rubra/Red - Abdomen Description: Soft, Round Hernia Present: No Bowel Sounds: Normoactive Flatus Presence: Present Stool: No Fundal Description: Firm, Midline Fundal Height: u/u - u/2 Objective-Diagnostic Laboratory: 08/03/16 07:16 08/02/16 08/02/16 08/02/16 11:35 15:38 15:38 WBC 11.7 H RBC 4.16 Hgb 11.8 L Hct 34.9 L MCV 84 MCH 28.3 MCHC 33.8 RDW 16.4 H Plt Count 302 Seg Neutrophils % 77.4 Lymphocytes % 14.6 Monocytes % 7.7 Eosinophils % 0.1 Basophils % 0.2 Absolute Neutrophils 9.1 H Absolute Lymphocytes 1.7 Absolute Monocytes 0.9 Absolute Eosinophils 0.0 Absolute Basophils 0.0 Urine Color STRAW Urine Appearance SLIGHTLY-CLOUDY Urine pH 7.0 Ur Specific [place] 1.003 Urine Protein NEGATIVE Urine Glucose (UA) NEGATIVE Urine Ketones NEGATIVE Urine Blood NEGATIVE Urine Nitrite NEGATIVE Ur Leukocyte Esterase NEGATIVE Blood Type A NEGATIVE Antibody Screen NEGATIVE 08/03/16 07:16 WBC 11.4 H RBC 3.10 L Hgb 8.8 L D Hct 26.2 L MCV 84 MCH 28.4 MCHC 33.7 RDW 16.2 H Plt Count 218 Seg Neutrophils % Lymphocytes % Monocytes % Eosinophils % Basophils % Absolute Neutrophils Absolute Lymphocytes Absolute Monocytes Absolute Eosinophils Absolute Basophils Urine Color Urine Appearance Urine pH Ur Specific [place] Urine Protein Urine Glucose (UA) Urine Ketones Urine Blood Urine Nitrite Ur Leukocyte Esterase Blood Type Antibody Screen
--- NOTE | 2016-08-03 18:01 | L&D Current Admission ---
Current Admit Datetime Report Generated by CPN: 08/03/2016 18:00 ADMISSION INFORMATION Current Admit Date/Time: 08/02/2016 14:38 (08/02/2016 11:40:Trang Posada RN) Reason for Admission: Rupture of Membranes (08/02/2016 11:40:Trang Posada RN) Chief Complaint: Contractions; Suspected Rupture of Membranes (08/02/2016 14:40:Jeanine Pierce RN) EGA per Dates: 39.6 (08/02/2016 11:40:QS system process) Method of Arrival: Ambulatory (08/02/2016 11:40:Trang Posada RN) Admitted From: Home (08/02/2016 11:40:Trang Posada RN) Reason for Induction: Not Applicable (08/02/2016 11:40:Trang Posada RN) Records Available: Yes (08/02/2016 11:40:Trang Posada RN) General Admission Information: Reviewed; Updated; Confirmed (08/02/2016 11:40:Jeanine Pierce RN) General Admission Reviewed By: Se Pierce RN (08/02/2016 11:40:Jeanine Pierce RN) BELONGINGS/ADVANCED DIRECTIVES Valuables/Personal Effects: Purse/Wallet; Cell Phone; Eyeglasses (08/02/2016 11:40:Jeanine Pierce RN) Disposition of Belongings: Kept with Patient (08/02/2016 11:40:Jeanine Pierce RN) Advance Direct for Healthcare: No, and Wants No Information (08/02/2016 11:40:Jeanine Pierce RN) Durable Power of Moving Worker: No (08/02/2016 11:40:Jeanine Pierce RN) Living Will: No (08/02/2016 11:40:Jeanine Pierce RN) Organ Donor: Yes (08/02/2016 11:40:Jeanine Pierce RN) Pt Rights Information Given: Yes (08/02/2016 11:40:Jeanine Pierce RN) Pt Understands Pt Rights: Yes (08/02/2016 11:40:Jeanine Pierce RN) LEARNING ASSESSMENT Knowledge Level: Understands L_D Process (08/02/2016 11:40:Jeanine Pierce RN) Barriers to Learning: None (08/02/2016 11:40:Jeanine Pierce RN) Learning Readiness: Motivated (08/02/2016 11:40:Jeanine Pierce RN) Learns Best By: 1 to 1 Instruction (08/02/2016 11:40:Jeanine Pierce RN) Learning Needs: Labor and Delivery Process; Pain Management; Symptoms to Report (08/02/2016 11:40:Jeanine Pierce RN) DOMESTIC VIOLANCE SCREENING Dom Viol Threatened/Hurt: No (08/02/2016 11:40:Jeanine Pierce RN) Hx of Abuse/Neglect past 2yrs: No (08/02/2016 11:40:Jeanine Pierce RN) Feel Unsafe Going Home: No (08/02/2016 11:40:Jeanine Pierce RN) Addt'l Observ Indicating Abuse: No (08/02/2016 11:40:Jeanine Pierce RN) Reason Unable to Complete Screen: N/A, Screen Completed (08/02/2016 11:40:Jeanine Pierce RN) Considered Personal Harm/Suicide: No (08/02/2016 11:40:Jeanine Pierce RN) NUTRITIONAL/FUNCTIONAL SCREENING Problem with Appetite >5 Days: No (08/02/2016 11:40:Jeanine Pierce RN) Chew/Swallow Difficulties: No (08/02/2016 11:40:Jeanine Pierce RN) Inappropriate Wt Gain/Loss: No (08/02/2016 11:40:Jeanine Pierce RN) Presence Skin Breakdown/Ulcer: No (08/02/2016 11:40:Jeanine Pierce RN) Special Diet: No (08/02/2016 11:40:Jeanine Pierce RN) Pt Requests Design Technician Visit: No (08/02/2016 11:40:Jeanine Pierce RN) Hx of Any of the Following?: N/A (08/02/2016 11:40:Jeanine Pierce RN) New Diagnosis of: N/A (08/02/2016 11:40:Jeanine Pierce RN) Requires Assist w/Ambulation: No (08/02/2016 11:40:Jeanine Pierce RN) Uses Assist Device to Ambulate: No (08/02/2016 11:40:Jeanine Pierce RN) Pt Requires Help w/ADL's: No (08/02/2016 11:40:Jeanine Pierce RN)
--- NOTE | 2016-08-03 18:01 | L&D General Admission ---
General Admit Datetime Report Generated by CPN: 08/03/2016 18:00 INFORMATION Patient Age: 25 (05/22/2016 08:55:QS system process) EDC: 08/03/2016 00:00 (08/01/2016 21:11:Jeanine Pierce RN) : 2 (08/01/2016 21:11:Aiyana Nuñez RN) Para: 0 (08/01/2016 21:11:Aiyana Nuñez RN) Term: 0 (08/01/2016 21:11:Aiyana Nuñez RN) : 0 (08/01/2016 21:11:Aiyana Nuñez RN) Spontaneous Abortions: 1 (08/01/2016 21:11:Aiyana Nuñez RN) Induced Abortions: 0 (08/01/2016 21:11:Aiyana Nuñez RN) Livin (08/01/2016 21:11:Aiyana Nuñez RN) Baby, Number in Womb: 1 (08/01/2016 21:11:Aiyana Nuñez RN) CARE Primary Help Desk Administrator: [employer] (08/01/2016 21:11:Aiyana Nuñez RN) Month of 1st Visit: December (08/01/2016 21:11:Aiyana Nuñez RN) Adequate Care: Yes (08/01/2016 21:11:Aiyana Nuñez RN) Height (in): 66 (08/03/2016 08:14:QS system process) ALLERGIES Medication Allergy: No (08/01/2016 21:11:Aiyana Nuñez RN) Medication Allergies: No Known Allergies (08/02/2016) (08/02/2016 11:57:QS system process) Latex Allergy: No Latex Allergies (08/01/2016 21:11:Aiyana Nuñez RN) COMMUNICATION Primary Language: Bahraini (08/01/2016 21:11:Aiyana Nuñez RN) Medical Tx Preferred Language: Bahraini (08/01/2016 21:11:Aiyana Nuñez RN) Communication Barrier(s): None (08/01/2016 21:11:Aiyana Nuñez RN) DEMOGRAPHICS Address: [address] [place] [id number] (05/22/2016 08:55:QS system process) Zipcode: [address] (05/22/2016 08:55:QS system process) Home (05/22/2016 08:55:QS system process) SSN: [id number] (05/22/2016 08:55:QS system process) Next of Kin Name: MARGARITO BOLANOS (05/22/2016 08:55:QS system process) Next of Kin (05/22/2016 08:55:QS system process) Next of Kin Relationship: SPO (05/22/2016 08:55:QS system process) Date of : 1990 (05/22/2016 08:55:QS system process) Marital Status: (05/22/2016 08:55:QS system process) Sex: Female (05/22/2016 08:55:QS system process) Race: (05/22/2016 08:55:QS system process) Ethnicity: Non- or (05/22/2016 08:55:QS system process) Latter Day: Other (05/22/2016 08:55:QS system process) DRUG AND ALCOHOL USE Alcohol: No (08/01/2016 21:11:Aiyana Nuñez RN) Cigarettes: Never Smoker. [id number] (08/01/2016 21:11:Aiyana Nuñez RN) Marijuana: No (08/01/2016 21:11:Aiyana Nuñez RN) Cocaine: No (08/01/2016 21:11:Aiyana Nuñez RN) Other Illicit Drugs: No (08/01/2016 21:11:Aiyana Nuñez RN) VACCINE HISTORY Influenza Vaccine: Yes (08/01/2016 21:11:Aiyana Nuñez RN) Wood Cabinetmaker: [facility] [place] (08/01/2016 21:11:Jeanine Pierce RN) Feeding Preference: Breast (08/01/2016 21:11:Aiyana Nuñez RN) Benefit of Breast Feed Discussed: Yes (08/01/2016 21:11:Aiyana Nuñez RN) Circumcision: Yes (08/01/2016 21:11:Aiyana Nuñez RN) Classes Attended: No (08/01/2016 21:11:Aiyana Nuñez RN) Tubal Ligation: No (08/01/2016 21:11:Aiyana Nuñez RN) Tubal Authorization Signed: N/A (08/01/2016 21:11:Aiyana Nuñez RN) Consent: N/A (08/01/2016 21:11:Aiyana Nuñez RN) Consent Signed: N/A (08/01/2016 21:11:Aiyana Nuñez RN) Pain Management Plans: Natural (08/01/2016 21:11:Aiyana Nuñez RN) Plans for Labor and Delivery: Cord Blood Banking (08/01/2016 21:11:Aiyana Nuñez RN) Support Person: Griffiths (08/01/2016 21:11:Aiyana Nuñez RN) Support Person Relationship: (08/01/2016 21:11:Aiyana Nuñez RN) Cultural/Spritual Practice: No (08/01/2016 21:11:Aiyana Nuñez RN) Spir/Cult Dietary Needs: No (08/01/2016 21:11:Aiyana Nuñez RN) LIVING SITUATION/DISCHARGE PLAN Living Arrangements: House (08/01/2016 21:11:Aiyana Nuñez RN) Adequate Access to:: Electric; Heat; Refrigeration; Plumbing/Running water; Phone; Transportation (08/01/2016 21:11:Aiyana Nuñez RN) WIC Program: No (08/01/2016 21:11:Aiyana Nuñez RN) Discharge Safety Deposit Supervisor Person: (08/01/2016 21:11:Aiyana Nuñez RN) Person to Help after Discharge: (08/01/2016 21:11:Aiyana Nuñez RN) Currently Using Commun Resources: No (08/01/2016 21:11:Aiyana Nuñez RN) Outside Agency/Hazard Mitigation Officer: No (08/01/2016 21:11:Aiyana Nuñez RN) Car Seat for Discharge: Yes (08/01/2016 21:11:Aiyana Nuñez RN) Adoption Requested: No (08/01/2016 21:11:Aiyana Nuñez RN) Pt Contact w/infant Post : N/A (08/01/2016 21:11:Aiyana Nuñez RN) LABS Blood Type: A Negative (08/01/2016 21:11:Aiyana Nuñez RN) Antibody Screen: negative (08/01/2016 21:11:Aiyana Nuñez RN) Hemoglobin: 8.8 L (08/03/2016 07:16:QS system process) Hematocrit: 26.2 L (08/03/2016 07:16:QS system process) MCV: 84 (08/03/2016 07:16:QS system process) Group Beta Strep: negative (08/01/2016 21:11:Aiyana Nuñez RN) Chlamydia: Negative (08/01/2016 21:11:Aiyana Nuñez RN) RPR/VDRL: Nonreactive (08/01/2016 21:11:Jeanine Pierce RN) Hepatitis B: Negative (08/01/2016 21:11:Jeanine Pierce RN) Rubella: Immune (08/01/2016 21:11:Aiyana Nuñez RN) OB/PREVIOUS HISTORY Current Procedures: Ultrasound (08/01/2016 21:11:Aiyana Nuñez RN) History of Previous : No (08/01/2016 21:11:Aiyana Nuñez RN) History of Gestational Diabetes: Yes (08/01/2016 21:11:Aiyana Nuñez RN) History of PIH: No (08/01/2016 21:11:Aiyana Nuñez RN) History of Incompetent Cervix: No (08/01/2016 21:11:Aiyana Nuñez RN) History of Placenta Previa/Abrup: No (08/01/2016 21:11:Aiyana Nuñez RN) History of Macrosomia: No (08/01/2016 21:11:Aiyana Nuñez RN) History of IUGR: No (08/01/2016 21:11:Aiyana Nuñez RN) History of Hemorrhage: No (08/01/2016 21:11:Aiyana Nuñez RN) History of Loss/Stillborn: No (08/01/2016 21:11:Aiyana Nuñez RN) History of : No (08/01/2016 21:11:Aiyana Nuñez RN) History of D (Rh) Sensitization: No (08/01/2016 21:11:Aiyana Nuñez RN) History Recurrent Loss/Stillborn: No (08/01/2016 21:11:Aiyana Nuñez RN) History Depression/PP Depression: No (08/01/2016 21:11:Aiyana Nuñez RN) History of Uterine Anomaly/LAKESHIA: No (08/01/2016 21:11:Aiyana Nuñez RN) History of Infertility: No (08/01/2016 21:11:Aiyana Nuñez RN) History of ART Treatment: No (08/01/2016 21:11:Aiyana Nuñez RN) History of LAKESHIA: No (08/01/2016 21:11:Aiyana Nuñez RN) Comments Obstetrical History: 2015- 2016 current (08/01/2016 21:11:Aiyana Nuñez RN) MEDICAL HISTORY Med Hx Diabetes: No (08/01/2016 21:11:Aiyana Nuñez RN) Diabetes Type: Gestational Diabetes (08/01/2016 21:11:Aiyana Nuñez RN) Med Hx Hypertension: No (08/01/2016 21:11:Aiyana Nuñez RN) Med Hx Heart Disease: No (08/01/2016 21:11:Aiyana Nuñez RN) Med Hx Autoimmune Disorder: No (08/01/2016 21:11:Aiyana Nuñez RN) Med Hx Kidney Disease/UTI: No (08/01/2016 21:11:Aiyana Nuñez RN) Med Hx Neurologic/Epilepsy: No (08/01/2016 21:11:Aiyana Nuñez RN) Med Hx Psychiatric Disorders: No (08/01/2016 21:11:Aiyana Nuñez RN) Med Hx Hepatitis/Liver Disease: No (08/01/2016 21:11:Aiyana Nuñez RN) Med Hx Varicosities/Phlebitis: No (08/01/2016 21:11:Aiyana Nuñez RN) Med Hx Thyroid Dysfunction: Yes (08/01/2016 21:11:Aiyana Nuñez RN) Med Hx Trauma/Violence: No (08/01/2016 21:11:Aiyana Nuñez RN) Med Hx Blood Transfusion: No (08/01/2016 21:11:Aiyana Nuñez RN) Med Hx Pulmonary (Asthma,TB): No (08/01/2016 21:11:Aiyana Nuñez RN) Med Hx Breast: No (08/01/2016 21:11:Aiyana Nuñez RN) Med Hx NARCOTICS AND/OR VICE DETECTIVE Surgery: No (08/01/2016 21:11:Aiyana Nuñez RN) Med Hx Hospitalization/Surgery: No (08/01/2016 21:11:Aiyana Nuñez RN) Med Hx Anesthetic Complications: No (08/01/2016 21:11:Aiyana Nuñez RN) Med Hx Abnormal Pap Smear: No (08/01/2016 21:11:Aiyana Nuñez RN) Other Medical Diseases: No (08/01/2016 21:11:Aiyana Nuñez RN) Med Hx Significant Family Hx: No (08/01/2016 21:11:Aiyana Nuñez RN) Details of Med/Surg Hx: Thyroid Dysfunction during current pregnacy (08/01/2016 21:11:Ayiana Nuñez RN) INFECTIOUS HISTORY Inf Hx Gonorrhea: No (08/01/2016 21:11:Aiyana Nuñez RN) Inf Hx Chlamydia: No (08/01/2016 21:11:Aiyana Nuñez RN) Inf Hx Syphilis: No (08/01/2016 21:11:Aiyana Nuñez RN) Inf Hx HIV/AIDS: No (08/01/2016 21:11:Aiyana Nuñez RN) Inf Hx Human Papilloma Virus: No (08/01/2016 21:11:Aiyana Nuñez RN) Inf Hx Pt/Partner Genital Herpes: No (08/01/2016 21:11:Aiyana Nuñez RN) Inf Hx Tuberculosis/Exposure: No (08/01/2016 21:11:Aiyana Nuñez RN) Inf Hx Hepatitis B,C: No (08/01/2016 21:11:Aiyana Nuñez RN) Inf Hx Rash or Viral Illness: No (08/01/2016 21:11:Aiyana Nuñez RN) GENETIC HISTORY Gen Hx Age >=35 at GUZMAN: No (08/01/2016 21:11:Aiyana Nuñez RN) Gen Hx Thalassemia: No (08/01/2016 21:11:Aiyana Nuñez RN) Gen Hx Congenital Heart Defect: No (08/01/2016 21:11:Aiyana Nuñez RN) Gen Hx Neural Tube Defect: No (08/01/2016 21:11:Aiyana Nuñez RN) Gen Hx Down's Syndrome: No (08/01/2016 21:11:Aiyana Nuñez RN) Gen Hx Milton-Sachs: No (08/01/2016 21:11:Aiyana Nuñez RN) Gen Hx Vega: No (08/01/2016 21:11:Aiyana Nuñez RN) Gen Hx Familial Dysautonomia: No (08/01/2016 21:11:Aiyana Nuñez RN) Gen Hx Sickle Cell Disease/Trait: No (08/01/2016 21:11:Aiyana Nuñez RN) Gen Hx Hemophilia/Blood Disorder: No (08/01/2016 21:11:Aiyana Nuñez RN) Gen Hx Muscular Dystrophy: No (08/01/2016 21:11:Aiyana Nuñez RN) Gen Hx Cystic Fibrosis: No (08/01/2016 21:11:Aiyana Nuñez RN) Gen Hx Huntingtons Chorea: No (08/01/2016 21:11:Aiyana Nuñez RN) Gen Hx Mental Retardation/Autism: No (08/01/2016 21:11:Aiyana Nuñez RN) Gen Hx Tested for Fragile X: No (08/01/2016 21:11:Aiyana Nuñez RN) Gen Hx Other Inher/Chromosomal: No (08/01/2016 21:11:Aiyana Nuñez RN) Gen Hx Pt Father or FOB Defect: No (08/01/2016 21:11:Aiyana Nuñez RN) Gen Hx Other Genetic History: No (08/01/2016 21:11:Aiyana Nuñez RN) Gen Hx Drugs/Meds since LMP: No (08/01/2016 21:11:Aiyana Nuñez RN)
--- NOTE | 2016-08-03 18:16 | L&D Care Plan ---
LD CARE PLANS Datetime Report Generated by CPN: 08/03/2016 18:15 Datetime: 08/02/2016 14:38 Pain State: Risk For (Trang Posada RN) Related To: Labor and Delivery Process (Trang Posada RN) Goal(s): Patients Pain will be Assessed and Managed; Patient will Verbalize Adequate Relief of Pain or the Ability to [place] with Current Pain (Trang Posada RN) Interventions: Assess Pain Severity on Scale of 0 (None) to 5 (Severe); Assess Type, Location and Intensity of Pain Each Time Client Reports Discomfort and Notify Provider if Unusal Pain Develops; Encourage Proper Breathing and Relaxation Techniques (Trang Posada RN) Outcome: Patient will Report Absence or Relief of Pain Consistent with Established Pain Goal (Trang Posada RN) Status: Ongoing (Trang Posada RN) Outcome: Patient will have a Decrease in Signs and Symptoms of Discomfort (Trang Posada RN) Status: Ongoing (Trang Posada RN) Anxiety State: Not Applicable (Trang Posada RN) Knowledge Deficit State: Risk For (Trang Posada RN) Related To: Labor and Delivery Process (Trang Posada RN) Goal(s): Patient will Accurately Verbalize Understanding of Plan of Care and Treatment; Patient and Family will Accurately Verbalize Understanding of the Disease Process (Trang Posada RN) Interventions: Assess Motivation and Willingness of Patient/Family to Learn; Assess Preferred Learning Mode: One to One Instruction, Reading, Videos, Group Discussion or Demonstration; Assess Barriers to Learning: Pain, Emotional State, Language Barrier, Cognitive Impairment, Visual or Hearing Deficits; Assess Patient and Family Knowledge of Disease Process, Medications and Treatment; Discuss Therapy and/or Treatment Options, Describe Rationale Behind Management, Therapy and Treatment Recommendations (Trang Posada RN) Outcome: Patient and Family will Verbalize Understanding of Condition, Treatment and Signs and Symptoms to Report (Trang Posada RN) Status: Ongoing (Trang Posada RN) Outcome: Patient will Identify Perceived Learning Needs and Express Motivation to Learn (Trang Posada RN) Status: Ongoing (Trang Posada RN) Infection State: Risk For (Trang Posada RN) Related To: Prolonged Labor or Induction; Premature/Prolonged Rupture of Membranes; Invasive Procedures; Altered Tissue Integrity (Trang Posada RN) Goal(s): The Patient will be Free of Infection, Vital Signs Stable and Lab Work within Normal Parameters (Trnag Posada RN) Interventions: Instruct and Reinforce Proper Handwashing, Hygiene, and Care Techniques to Patient and Family; Monitor Vital Signs; Monitor Patient for the Following Signs of Infection: Fever, Abdominal Tenderness, Unusual Discharge; Monitor Aminiotic Fluid, Urine and Lochia for Color and Odor (Trang Posada RN) Outcome: Patient will Remain Free of Infection (Trang Posada RN) Status: Ongoing (Trang Posada RN) Outcome: Infection will be Recognized Early to Allow for Prompt Treatment (Trang Posada RN) Status: Ongoing (Trang Posada RN) Fluid Volume State: Not Applicable (Trang Posada, ) Injury State: Not Applicable (Trang Posada, RN) Impaired Skin Integrity State: Risk For (Trang Posada RN) Related To: Vaginal Delivery (Trang Posada RN) Goal(s): Patient will Maintain Optimal Skin Integrity, Free of Breakdown, Injury or Infection (Trang Posada RN) Interventions: Complete Screening for Pressure Ulcer Risk and Initiate Protocol per Hospital Policy; Monitor Site of Skin Impairment for Color Changes, Redness, Swelling, Warmth, Pain or Other Signs of Infection; Encourage and Assist with Position Changes (Trang Posada RN) Outcome: Patient will not have Evidence of Injury Such as Skin Breakdown, Scrapes, Cuts, or Bruising (Trang Posada RN) Status: Ongoing (Trang Posada RN) Outcome: Patient will Report Any Altered Sensation or Pain at Site of Skin Impairment (Trang Albino, RN) Status: Ongoing (Trang Albino, RN) Parenting Impaired State: Not Applicable (Trang Albino, RN) Nutrition State: Not Applicable (Trang Albino, RN) Grieving State: Not Applicable (Trang Albino, RN) Datetime: 08/02/2016 14:37 Pain State: Risk For (Trang Posada RN) Related To: Labor and Delivery Process (Trang Posada RN) Goal(s): Patients Pain will be Assessed and Managed; Patient will Verbalize Adequate Relief of Pain or the Ability to [place] with Current Pain (Trang Posada RN) Interventions: Assess Pain Severity on Scale of 0 (None) to 5 (Severe); Assess Type, Location and Intensity of Pain Each Time Client Reports Discomfort and Notify Provider if Unusal Pain Develops; Encourage Proper Breathing and Relaxation Techniques (Trang Posada RN) Outcome: Patient will Report Absence or Relief of Pain Consistent with Established Pain Goal (Trang Posada RN) Status: Ongoing (Trang Posada RN) Outcome: Patient will have a Decrease in Signs and Symptoms of Discomfort (Trang Posada RN) Status: Ongoing (Trang Posada, DAREN) Anxiety State: Not Applicable (Trang Posada, DAREN) Knowledge Deficit State: Risk For (Trang Posada RN) Related To: Labor and Delivery Process (Trang Posada RN) Goal(s): Patient will Accurately Verbalize Understanding of Plan of Care and Treatment; Patient and Family will Accurately Verbalize Understanding of the Disease Process (Trang Posada RN) Interventions: Assess Motivation and Willingness of Patient/Family to Learn; Assess Preferred Learning Mode: One to One Instruction, Reading, Videos, Group Discussion or Demonstration; Assess Barriers to Learning: Pain, Emotional State, Language Barrier, Cognitive Impairment, Visual or Hearing Deficits; Assess Patient and Family Knowledge of Disease Process, Medications and Treatment; Discuss Therapy and/or Treatment Options, Describe Rationale Behind Management, Therapy and Treatment Recommendations (Trang Posada RN) Outcome: Patient and Family will Verbalize Understanding of Condition, Treatment and Signs and Symptoms to Report (Trang Posada RN) Status: Ongoing (Trang Posada RN) Outcome: Patient will Identify Perceived Learning Needs and Express Motivation to Learn (Trang Posada RN) Status: Ongoing (Trang Posada, DAREN) Infection State: Risk For (Trang Posada RN) Related To: Prolonged Labor or Induction; Premature/Prolonged Rupture of Membranes; Invasive Procedures; Altered Tissue Integrity (Trang Posada RN) Goal(s): The Patient will be Free of Infection, Vital Signs Stable and Lab Work within Normal Parameters (Trang Posada RN) Interventions: Instruct and Reinforce Proper Handwashing, Hygiene, and Care Techniques to Patient and Family; Monitor Vital Signs; Monitor Patient for the Following Signs of Infection: Fever, Abdominal Tenderness, Unusual Discharge; Monitor Aminiotic Fluid, Urine and Lochia for Color and Odor (Trang Posada RN) Outcome: Patient will Remain Free of Infection (Trang Posada RN) Status: Ongoing (Trang Posada RN) Outcome: Infection will be Recognized Early to Allow for Prompt Treatment (Trang Posada RN) Status: Ongoing (Trang Posada RN) Fluid Volume State: Not Applicable (Trang Posada RN) Injury State: Not Applicable (Trang Posada, DAREN) Impaired Skin Integrity State: Risk For (Trang Posada RN) Related To: Vaginal Delivery (Trang Posada RN) Goal(s): Patient will Maintain Optimal Skin Integrity, Free of Breakdown, Injury or Infection (Trang Posada RN) Interventions: Complete Screening for Pressure Ulcer Risk and Initiate Protocol per Hospital Policy; Monitor Site of Skin Impairment for Color Changes, Redness, Swelling, Warmth, Pain or Other Signs of Infection; Encourage and Assist with Position Changes (Trang Posada RN) Outcome: Patient will not have Evidence of Injury Such as Skin Breakdown, Scrapes, Cuts, or Bruising (Trang Posada RN) Status: Ongoing (Trang Posada RN) Outcome: Patient will Report Any Altered Sensation or Pain at Site of Skin Impairment (Trang Posada RN) Status: Ongoing (Trang Posada RN) Parenting Impaired State: Not Applicable (Trang Posada RN) Nutrition State: Not Applicable (Trang Albino, RN) Grieving State: Not Applicable (Trang Albino, RN)
[2016-08-04] MEDS: IBUPROFEN 800 MG TABLET PO SCH (05:31)
--- NOTE | 2016-08-04 06:01 | L&D General Admission ---
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: [employer] (08/01/2016 21:11:Aiyana Nuñez RN) Month of 1st Visit: December (08/01/2016 21:11:Aiyana Nuñez RN) Adequate Care: Yes (08/01/2016 21:11:Aiyana Nuñez RN) Height (in): 66 (08/03/2016 08:14:QS system process) ALLERGIES Medication Allergy: No (08/01/2016 21:11:Aiyana Nuñez RN) Medication Allergies: No Known Allergies (08/02/2016) (08/02/2016 11:57:QS system process) Latex Allergy: No Latex Allergies (08/01/2016 21:11:Aiyana Nuñez RN) COMMUNICATION Primary Language: Sri Lankan (08/01/2016 21:11:Aiyana Nuñez RN) Medical Tx Preferred Language: Sri Lankan (08/01/2016 21:11:Aiyana Nuñez RN) Communication Barrier(s): None (08/01/2016 21:11:Aiyana Nuñez RN) DEMOGRAPHICS Address: [address] [place] [id number] (05/22/2016 08:55:QS system process) Zipcode: [address] (05/22/2016 08:55:QS system process) Home (05/22/2016 08:55:QS system process) SSN: [id number] (05/22/2016 08:55:QS system process) Next of Kin Name: MARGARITO BOLANOS (05/22/2016 08:55:QS system process) Next of Kin (05/22/2016 08:55:QS system process) Next of Kin Relationship: SPO (05/22/2016 08:55:QS system process) Date of : 1990 (05/22/2016 08:55:QS system process) Marital Status: (05/22/2016 08:55:QS system process) Sex: Female (05/22/2016 08:55:QS system process) Race: (05/22/2016 08:55:QS system process) Ethnicity: Non- or (05/22/2016 08:55:QS system process) [employer]aritan: Other (05/22/2016 08:55:QS system process) DRUG AND ALCOHOL USE Alcohol: No (08/01/2016 21:11:Aiyana Nuñez RN) Cigarettes: Never Smoker. [id number] (08/01/2016 21:11:Aiyana Nuñez RN) Marijuana: No (08/01/2016 21:11:Aiyana Nuñez RN) Cocaine: No (08/01/2016 21:11:Aiyana Nuñez RN) Other Illicit Drugs: No (08/01/2016 21:11:Aiyana Nuñez RN) VACCINE HISTORY Influenza Vaccine: Yes (08/01/2016 21:11:Aiyana Nuñez RN) Screen Writer: [facility] [place] (08/01/2016 21:11:Jeanine Pierce RN) Feeding Preference: Breast (08/01/2016 21:11:Aiyana Nuñez RN) Benefit of Breast Feed Discussed: Yes (08/01/2016 21:11:Aiyana Nuñez RN) Circumcision: Yes (08/01/2016 21:11:Aiyana Nuñez RN) Classes Attended: No (08/01/2016 21:11:Aiyana Nuñez RN) Tubal Ligation: No (08/01/2016 21:11:Aiyana Nuñez RN) Tubal Authorization Signed: N/A (08/01/2016 21:11:Aiyana Nuñez RN) Consent: N/A (08/01/2016 21:11:Aiyana Nuñez RN) Consent Signed: N/A (08/01/2016 21:11:Aiyana Nuñez RN) Pain Management Plans: Natural (08/01/2016 21:11:Aiyana Nuñez RN) Plans for Labor and Delivery: Cord Blood Banking (08/01/2016 21:11:Aiyana Nuñez RN) Support Person: Griffiths (08/01/2016 21:11:Aiyana Nuñez RN) Support Person Relationship: (08/01/2016 21:11:Aiyana Nuñez RN) Cultural/Spritual Practice: No (08/01/2016 21:11:Aiyana Nuñez RN) Spir/Cult Dietary Needs: No (08/01/2016 21:11:Aiyana Nuñez RN) LIVING SITUATION/DISCHARGE PLAN Living Arrangements: House (08/01/2016 21:11:Aiyana Nuñez RN) Adequate Access to:: Electric; Heat; Refrigeration; Plumbing/Running water; Phone; Transportation (08/01/2016 21:11:Aiyana Nuñez RN) WIC Program: No (08/01/2016 21:11:Aiyana Nuñez RN) Discharge Artificial Breeding Ranch Supervisor Person: (08/01/2016 21:11:Aiyana Nuñez RN) Person to Help after Discharge: (08/01/2016 21:11:Aiyana Nuñez RN) Currently Using Commun Resources: No (08/01/2016 21:11:Aiyana Nuñez RN) Outside Agency/Research And Development Chemist: No (08/01/2016 21:11:Aiyana Nuñez RN) Car Seat for Discharge: Yes (08/01/2016 21:11:Aiyana Nuñez RN) Adoption Requested: No (08/01/2016 21:11:Aiyana Nuñez RN) Pt Contact w/infant Post : N/A (08/01/2016 21:11:Aiyana Nuñez RN) LABS Blood Type: A Negative (08/01/2016 21:11:Aiyana Nuñez RN) Antibody Screen: negative (08/01/2016 21:11:Aiyana Nuñez RN) Hemoglobin: 8.8 L (08/03/2016 07:16:QS system process) Hematocrit: 26.2 L (08/03/2016 07:16:QS system process) MCV: 84 (08/03/2016 07:16:QS system process) Group Beta Strep: negative (08/01/2016 21:11:Aiyana Nuñez RN) Chlamydia: Negative (08/01/2016 21:11:Aiyana Nuñez RN) RPR/VDRL: Nonreactive (08/01/2016 21:11:Jeanine Pierce RN) Hepatitis B: Negative (08/01/2016 21:11:Jeanine Pierce RN) Rubella: Immune (08/01/2016 21:11:Aiyana Nuñez RN) OB/PREVIOUS HISTORY Current Procedures: Ultrasound (08/01/2016 21:11:Aiyana Nuñez RN) History of Previous : No (08/01/2016 21:11:Aiyana Nuñez RN) History of Gestational Diabetes: Yes (08/01/2016 21:11:Aiyana Nuñez RN) History of PIH: No (08/01/2016 21:11:Aiyana Nuñez RN) History of Incompetent Cervix: No (08/01/2016 21:11:Aiyana Nuñez RN) History of Placenta Previa/Abrup: No (08/01/2016 21:11:Aiyana Nuñez RN) History of Macrosomia: No (08/01/2016 21:11:Aiyana Nuñez RN) History of IUGR: No (08/01/2016 21:11:Aiyana Nuñez RN) History of Hemorrhage: No (08/01/2016 21:11:Aiyana Nuñez RN) History of Loss/Stillborn: No (08/01/2016 21:11:Aiyana Nuñez RN) History of : No (08/01/2016 21:11:Aiyana Nuñez RN) History of D (Rh) Sensitization: No (08/01/2016 21:11:Aiyana Nuñez RN) History Recurrent Loss/Stillborn: No (08/01/2016 21:11:Aiyana Nuñez RN) History Depression/PP Depression: No (08/01/2016 21:11:Aiyana Nuñez RN) History of Uterine Anomaly/LAKESHIA: No (08/01/2016 21:11:Aiyana Nuñez RN) History of Infertility: No (08/01/2016 21:11:Aiyana Nuñez RN) History of ART Treatment: No (08/01/2016 21:11:Aiyana Nuñez RN) History of LAKESHIA: No (08/01/2016 21:11:Aiyana Nuñez RN) Comments Obstetrical History: 2015- 2016 current (08/01/2016 21:11:Aiyana Nuñez RN) MEDICAL HISTORY Med Hx Diabetes: No (08/01/2016 21:11:Aiyana Nuñez RN) Diabetes Type: Gestational Diabetes (08/01/2016 21:11:Aiyana Nuñez RN) Med Hx Hypertension: No (08/01/2016 21:11:Aiyana Nuñez RN) Med Hx Heart Disease: No (08/01/2016 21:11:Aiyana Nuñez RN) Med Hx Autoimmune Disorder: No (08/01/2016 21:11:Aiyana Nuñez RN) Med Hx Kidney Disease/UTI: No (08/01/2016 21:11:Aiyana Nuñez RN) Med Hx Neurologic/Epilepsy: No (08/01/2016 21:11:Aiyana Nuñez RN) Med Hx Psychiatric Disorders: No (08/01/2016 21:11:Aiyana Nuñez RN) Med Hx Hepatitis/Liver Disease: No (08/01/2016 21:11:Aiyana Nuñez RN) Med Hx Varicosities/Phlebitis: No (08/01/2016 21:11:Aiyana Nuñez RN) Med Hx Thyroid Dysfunction: Yes (08/01/2016 21:11:Aiyana Nuñez RN) Med Hx Trauma/Violence: No (08/01/2016 21:11:Aiyana Nuñez RN) Med Hx Blood Transfusion: No (08/01/2016 21:11:Aiyana Nuñez RN) Med Hx Pulmonary (Asthma,TB): No (08/01/2016 21:11:Aiyana Nuñez RN) Med Hx Breast: No (08/01/2016 21:11:Aiyana Nuñez RN) Med Hx CADDY PACKER Surgery: No (08/01/2016 21:11:Aiyana Nuñez RN) Med Hx Hospitalization/Surgery: No (08/01/2016 21:11:Aiyana Nuñez RN) Med Hx Anesthetic Complications: No (08/01/2016 21:11:Aiyana Nuñez RN) Med Hx Abnormal Pap Smear: No (08/01/2016 21:11:Aiyana Nuñez RN) Other Medical Diseases: No (08/01/2016 21:11:Aiyana Nuñez RN) Med Hx Significant Family Hx: No (08/01/2016 21:11:Aiyana Nuñez RN) Details of Med/Surg Hx: Thyroid Dysfunction during current pregnacy (08/01/2016 21:11:Aiyana Nuñez RN) INFECTIOUS HISTORY Inf Hx Gonorrhea: No (08/01/2016 21:11:Aiyana Nuñez RN) Inf Hx Chlamydia: No (08/01/2016 21:11:Aiyana Nuñez RN) Inf Hx Syphilis: No (08/01/2016 21:11:Aiyana Nuñez RN) Inf Hx HIV/AIDS: No (08/01/2016 21:11:Aiyana Nuñez RN) Inf Hx Human Papilloma Virus: No (08/01/2016 21:11:Aiyana Nuñez RN) Inf Hx Pt/Partner Genital Herpes: No (08/01/2016 21:11:Aiyana Nuñez RN) Inf Hx Tuberculosis/Exposure: No (08/01/2016 21:11:Aiyana Nuñez RN) Inf Hx Hepatitis B,C: No (08/01/2016 21:11:Aiyana Nuñez RN) Inf Hx Rash or Viral Illness: No (08/01/2016 21:11:Aiyana Nuñez RN) GENETIC HISTORY Gen Hx Age >=35 at GUZMAN: No (08/01/2016 21:11:Aiyana Nuñez RN) Gen Hx Thalassemia: No (08/01/2016 21:11:Aiyana Nuñez RN) Gen Hx Congenital Heart Defect: No (08/01/2016 21:11:Aiyana Nuñez RN) Gen Hx Neural Tube Defect: No (08/01/2016 21:11:Aiyana Nuñez RN) Gen Hx Down's Syndrome: No (08/01/2016 21:11:Aiyana Nuñez RN) Gen Hx Milton-Sachs: No (08/01/2016 21:11:Aiyana Nuñez RN) Gen Hx Vega: No (08/01/2016 21:11:Aiyana Nuñez RN) Gen Hx Familial Dysautonomia: No (08/01/2016 21:11:Aiyana Nuñez RN) Gen Hx Sickle Cell Disease/Trait: No (08/01/2016 21:11:Aiyana Nuñez RN) Gen Hx Hemophilia/Blood Disorder: No (08/01/2016 21:11:Aiyana Nuñez RN) Gen Hx Muscular Dystrophy: No (08/01/2016 21:11:Aiyana Nuñez RN) Gen Hx Cystic Fibrosis: No (08/01/2016 21:11:Aiyana Nuñez RN) Gen Hx Huntingtons Chorea: No (08/01/2016 21:11:Aiyana Nuñez RN) Gen Hx Mental Retardation/Autism: No (08/01/2016 21:11:Aiyana Nuñez RN) Gen Hx Tested for Fragile X: No (08/01/2016 21:11:Aiyana Nuñez RN) Gen Hx Other Inher/Chromosomal: No (08/01/2016 21:11:Aiyana Nuñez RN) Gen Hx Pt Father or FOB Defect: No (08/01/2016 21:11:Aiyana Nuñez RN) Gen Hx Other Genetic History: No (08/01/2016 21:11:Aiyana Nuñez RN) Gen Hx Drugs/Meds since LMP: No (08/01/2016 21:11:Aiyana Nuñez RN)
[2016-08-04] MEDS: DOCUSATE SODIUM 100 MG CAPSULE PO SCH (09:14)
[2016-08-04] MEDS: PRENATAL VITAMIN W-O CA NO5/FE FUMARATE/FA CAPSULE PO SCH (09:14)
[2016-08-04] MEDS: SENNOSIDES/DOCUSATE 8.6-50 MG 1 EACH TABLET PO SCH (09:15)
[2016-08-04] MEDS: FERROUS SULFATE 325 MG TABLET PO SCH (09:15)
--- NOTE | 2016-08-04 09:31 | PDOC PROGRESS REPORT ---
Subjective-OB Subjective: Post Delivery Day: 25 year old. Denies any needs at this time. Ready to go home. Physical Exam (OB) Vital Signs: Temp Pulse Resp BP Pulse Ox 97.7 F 81 15 125/73 100 08/04/16 07:48 08/04/16 07:48 08/04/16 07:48 08/04/16 07:48 08/04/16 07:48 Intake & Output 08/03/16 08/04/16 08/05/16 06:59 06:59 06:59 Weight 105 kg - Lochia Lochia Amount: Small 10-25 ml Lochia Color: Rubra/Red - Abdomen Description: Soft, Round Hernia Present: No Bowel Sounds: Normoactive Flatus Presence: Present Stool: No Fundal Description: Firm, Midline Fundal Height: u/u - u/2 Objective-Diagnostic Laboratory: 08/03/16 07:16
--- NOTE | 2016-08-04 09:37 | PDOC DISCHARGE SUMMARY ---
Final Diagnosis Discharge Date: 08/04/16 - Final Diagnosis (1) GDM (gestational diabetes mellitus) Is this a current diagnosis for this admission?: Yes (2) Hypothyroidism Is this a current diagnosis for this admission?: Yes (3) Labor, precipitous, delivered Is this a current diagnosis for this admission?: Yes (4) Is this a current diagnosis for this admission?: Yes (5) Vaginal delivery Is this a current diagnosis for this admission?: Yes Discharge Data - Discharge Medication Home Medications: Iron 1 tab PO DAILY 08/01/16 Vit/Iron Fumarate/FA [ Tablet] 1 tab PO DAILY 08/01/16 Docusate Sodium [Colace 100 mg Capsule] 100 mg PO BID #30 capsule 08/04/16 Ferrous Sulfate [Feosol 325 mg Tablet] 325 mg PO BID #60 tablet 08/04/16 Gestational Age: 39.6 wks Reason(s) for Admission: Onset of Labor Procedures: Ultrasound Intrapartum Procedure(s): Spontaneous Vaginal Delivery Complication(s): Laceration-Perineal, Laceration-Labial, Laceration- Sulcus Laceration-Degree: 2nd - Data Baby 1 Male at 1 minute: 9 at 5 minutes: 9 Weight: 3.657 kg Home with Mother: Yes Complications: No - Diagnosis Test Laboratory: Temp Pulse Resp BP Pulse Ox 97.7 F 81 15 125/73 100 08/04/16 07:48 08/04/16 07:48 08/04/16 07:48 08/04/16 07:48 08/04/16 07:48 08/02/16 08/02/16 08/03/16 11:35 15:38 07:16 RBC 4.16 3.10 L Hgb 11.8 L 8.8 L D Hct 34.9 L 26.2 L Urine Opiates Screen NEGATIVE - Discharge information/Instructions Discharge Activity: Activity As Tolerated, Balance Activity w/Rest, Pelvic Rest , Slowly Increase Activity, No tub bath Discharge Diet: Regular Disposition: HOME, SELF-CARE Follow up with: [facility] in: 4, Weeks
[2016-08-04 11:41] VITALS: BP 127/92
== END 2016-08-04 12:44 | disposition home or self-care (01) | DRG 775 ==
LOC: LC 11:25 → LR 14:39 → 2S 20:33
PROVIDERS: ADMIT Student in an Organized Health Care Education/Training Program; ATTEND Student in an Organized Health Care Education/Training Program
PROC: 10E0XZZ Delivery of Products of Conception, External Approach (ICD-10-PCS; principal; 2016-08-02)
PROC: 0KQM0ZZ Repair Perineum Muscle, Open Approach (ICD-10-PCS; 2016-08-02)
PROC: 4A1HXCZ Monitoring of Products of Conception, Cardiac Rate, External Approach (ICD-10-PCS; 2016-08-02)
DX: O24.429 Gestational diabetes mellitus in childbirth, unspecified control (principal); O71.4 Obstetric high vaginal laceration alone; O70.1 Second degree perineal laceration during delivery; O99.284 Endocrine, nutritional and metabolic diseases complicating childbirth; E03.9 Hypothyroidism, unspecified; O62.3 Precipitate labor; Z37.0 Single live birth; Z3A.39 39 weeks gestation of pregnancy
CPT/HCPCS: 36415; 80307; 81005; 85025; 85027; 86592; 86850; 86900; 86901; 94760; J2590; J3490